=== PATIENT | male | born 1955 | race Caucasian/White ===

== ENCOUNTER 2016-08-11 12:37 | Inpatient (IN) | payer SELFPAY ==
[~2016-08-11] VITALS: Ht 175.3 cm; Wt 80.6 kg
[2016-08-11] VITALS (9 sets, daily range): BP systolic 105–142; BP diastolic 52–89; PULSE 53–77; RESP 17–22; TEMP 97–98.6; O2SAT 97–100
[~2016-08-11 12:37] MED LIST: Z.0.NO CURRENT MEDS
[2016-08-11] MEDS ORDERED: SODIUM CHLOR 0.9% 1000 ML INJ 1,000 ML IV ONE (12:52)
--- NOTE | 2016-08-11 12:57 | PD ---
HPI Chief Complaint: Syncope/Near-Syncope Time Seen by Provider: 12:45 Travel History International Travel<30 days: No Contact w/Intl Traveler<30days: No Traveled to known affect area: No History of Present Illness HPI 61-year-old male here by private vehicle for evaluation of syncopal episodes. This morning the patient told his significant other that he was not feeling well. He had an episode where it seemed like he may have passed out. He was then driven to the hospital, and while en route began to complain of not feeling well and had a syncopal episode. Patient had another syncopal episode while in triage, during this time he had some generalized shaking which appeared to be seizure-like according to the triage nurse. Patient denies history of seizures. History of CAD with angioplasty. Apparently he was recently told that he has a bladder mass. He has been having hematuria. No fevers or chills. He is denying chest pain or dyspnea. No abdominal pain. PFSH Past Medical History Asthma: No Blood Disorders: Yes Heart Rhythm Problems: Yes Cancer: No Cardiovascular Problems: Yes Chest Pain: Yes COPD: No Endocrine: No Genitourinary: No Immune Disorder: No Musculoskeletal: No Neurologic: No Psychiatric: No Respiratory: Yes Myocardial Infarction: Yes Sleep Apnea: No Tetanus Vaccination: > 5 Years Past Surgical History Abdominal Surgery: No Cardiac Surgery: Yes (CARDIAC CATH-ANGIOPLASTY TO RCA) Ear Surgery: No Endocrine Surgery: No Eye Surgery: No Genitourinary Surgery: Yes (VASECTOMY) Gynecologic Surgery: No Oral Surgery: No Thoracic Surgery: No Other Surgery: Yes Social History Alcohol Use: Yes (2 BEERS PER DAY) Tobacco Use: No Substance Use: No Allergies-Medications (Allergen,Severity, Reaction): Coded Allergies: No Known Allergies (Verified , 08/11/16) Reported Meds & Prescriptions Reported Meds & Active Scripts Active Reported No Current Meds (Miscellaneous Medication) Misc Review of Systems Except as stated in HPI: all other systems reviewed are Neg Physical Exam Narrative GENERAL: Well-developed, well-nourished, awake, alert, diaphoretic SKIN: Warm and diaphoretic HEAD: Atraumatic. Normocephalic. EYES: Pupils equal and round. No scleral icterus. No injection or drainage. ENT: No nasal bleeding or discharge. Mucous membranes pink and moist. NECK: Trachea midline. No JVD. No nuchal rigidity. CARDIOVASCULAR: Regular rate and rhythm. No murmur appreciated. RESPIRATORY: No accessory muscle use. Clear to auscultation. Breath sounds equal bilaterally. GASTROINTESTINAL: Abdomen soft, non-tender, nondistended. Reducible umbilical hernia. MUSCULOSKELETAL: No obvious deformities. No clubbing. No cyanosis. No edema. NEUROLOGICAL: Awake and alert. No obvious cranial nerve deficits. Motor grossly within normal limits. Normal speech. No focal deficit. PSYCHIATRIC: Appropriate mood and affect; insight and judgment normal. Data Data Last Documented VS Vital Signs Date Time Temp Pulse Resp B/P Pulse Ox O2 Delivery O2 Flow Rate FiO2 08/11/16 15:02 64 20 141/75 98 08/11/16 12:45 98.6 Orders Complete Blood Count With Diff (08/11/16 12:52) Comprehensive Metabolic Panel (08/11/16 12:52) Magnesium (Mg) (08/11/16 12:52) Ckmb (Isoenzyme) Profile (08/11/16 12:52) Troponin I (08/11/16 12:52) Act Partial Throm Time (Ptt) (08/11/16 12:52) Prothrombin Time / Inr (Pt) (08/11/16 12:52) Chest, Single Ap (08/11/16 12:52) Ct Brain W/O Iv Contrast(Rout) (08/11/16 12:52) Ecg Monitoring (08/11/16 12:52) Iv Access Insert/Monitor (08/11/16 12:52) Oximetry (08/11/16 12:52) Sodium Chloride 0.9% Flush (Ns Flush) (08/11/16 13:00) Sodium Chlor 0.9% 1000 Ml Inj (Ns 1000 M (08/11/16 12:52) Bedside Glucose TOMY.AC&HS (08/11/16 12:52) Urinalysis - C+S If Indicated (08/11/16 13:12) D-Dimer (08/11/16 12:45) Cta Brain W Iv Contrast W 3d (08/11/16 ) Ct Pulmonary Angiogram (08/11/16 13:41) Ct Abd/Pel W Iv Contrast(Rout) (08/11/16 ) Cta Neck W Iv Contrast W 3d (08/11/16 ) Iohexol 350 Inj (Omnipaque 350 Inj) (08/11/16 14:36) Admit Order (Ed Use Only) (08/11/16 15:22) Labs Laboratory Tests Test 08/11/16 12:45 White Blood Count 12.1 TH/MM3 Red Blood Count 5.01 MIL/MM3 Hemoglobin 14.2 GM/DL Hematocrit 41.5 % Mean Corpuscular Volume 82.9 FL Mean Corpuscular Hemoglobin 28.2 PG Mean Corpuscular Hemoglobin 34.1 % Concent Red Cell Distribution Width 13.3 % Platelet Count 257 TH/MM3 Mean Platelet Volume 8.8 FL Neutrophils (%) (Auto) 69.3 % Lymphocytes (%) (Auto) 17.4 % Monocytes (%) (Auto) 8.2 % Eosinophils (%) (Auto) 4.5 % Basophils (%) (Auto) 0.6 % Neutrophils # (Auto) 8.4 TH/MM3 Lymphocytes # (Auto) 2.1 TH/MM3 Monocytes # (Auto) 1.0 TH/MM3 Eosinophils # (Auto) 0.5 TH/MM3 Basophils # (Auto) 0.1 TH/MM3 CBC Comment DIFF FINAL Differential Comment Prothrombin Time 11.4 SEC Prothromb Time International 1.0 RATIO Ratio Activated Partial 28.4 SEC Thromboplast Time D-Dimer Quantitative (PE/DVT) 0.97 MG/L FEU Sodium Level 137 MEQ/L Potassium Level 4.3 MEQ/L Chloride Level 100 MEQ/L Carbon Dioxide Level 24.8 MEQ/L Anion Gap 12 MEQ/L Blood Urea Nitrogen 11 MG/DL Creatinine 0.97 MG/DL Estimat Glomerular Filtration 79 ML/MIN Rate Random Glucose 108 MG/DL Calcium Level 8.8 MG/DL Magnesium Level 2.1 MG/DL Total Bilirubin 0.5 MG/DL Aspartate Amino Transf 17 U/L (AST/SGOT) Alanine Aminotransferase 20 U/L (ALT/SGPT) Alkaline Phosphatase 174 U/L Total Creatine Kinase 52 U/L Troponin I LESS THAN 0.02 NG/ML Total Protein 7.4 GM/DL Albumin 3.5 GM/DL [facility] Medical Decision Making Medical Screen Exam Complete: Yes Emergency Medical Condition: Yes Interpretation(s) EKG: Sinus, rate 51, leftward axis, LAFB, no acute ischemic abnormality. Differential Diagnosis Syncope, dysrhythmia, ACS, seizure, PE, metabolic abnormality, intracranial abnormality Narrative Course Vital signs show heart rate 55, blood pressure 135/79, pulse ox 98% on room air , oral temp of 98.6F. CBC is essentially unremarkable. CMP is essentially unremarkable. Cardiac enzymes are negative. D-dimer is 0.97. Chest x-ray: No acute disease. CT head: CONCLUSION: 1. Hyperdense lesion in the medial left temporal lobe measuring 9 x 9 mm could be aneurysm, focal bleed or hemorrhagic metastatic lesion. 2. There is a low-density in the high right frontal and high left parietal lobe could be edema from metastatic lesions versus less likely old infarcts. 3. Probable large arachnoid cyst posterior fossa. The patient and the patient's family were made aware of all findings. CTA brain ordered looking for possible aneurysm. I also ordered a CT of the chest and abdomen to look for possible metastatic disease. CTA neck: CONCLUSION: 1. Mild plaque in both internal carotid arteries but no hemodynamically significant stenosis bilaterally. 2. No aneurysm. CTA brain: CONCLUSION: 1. No evidence of stenosis or aneurysm. 2. The known enhancing mass in the medial left temporal lobe is again visualized. 3. Arachnoid cyst again noted in the posterior fossa. CT pulmonary angiogram: CONCLUSION: 1. No evidence of pulmonary embolism. 2. Multiple bilateral small noncalcified pulmonary nodules most consistent with metastatic disease given the other findings. 3. Mediastinal and bilateral hilar adenopathy. CT abdomen pelvis: CONCLUSION: 1. Soft tissue mass in the right side of the bladder most consistent with a primary bladder tumor. 2. Multiple osseous metastasis. 3. 2 low-attenuation lesions in the liver most characteristic of metastatic disease. 4. Bilateral adrenal masses consistent with metastatic disease. The patient and the patient's family were made aware of all findings. He is resting comfortably. He is awake and alert. He will be admitted for further treatment and evaluation of syncope, metastatic disease, bladder tumor. Case discussed with medical residents. The patient will be admitted to their service under Dr. Augustine. Diagnosis Primary Impression: Syncope Qualified Code: R55 - Syncope, unspecified syncope type Additional Impressions: Metastatic disease Bladder tumor Admitting Information Admitting Physician Requests: Admit Noe Perry MD Aug 11, 2016 12:57
[2016-08-11] MEDS ORDERED: SODIUM CHLORIDE 0.9% FLUSH 5 ML FLUSH IVF PRN (13:00)
[2016-08-11 13:11] LABS: AUTOMATED NEUTROPHIL # 8.4 TH/MM3 (1.8-7.7); BASOPHIL # 0.1 TH/MM3 (0-0.2); BASOPHIL % 0.6 % (0.0-2.0); EOSINOPHIL # 0.5 TH/MM3 (0-0.4); EOSINOPHIL % 4.5 % (0.0-4.0); HEMATOCRIT 41.5 % (39.0-51.0); HEMO FLAGS DIFF FINAL; LYMPH % 17.4 % (9.0-44.0); LYMPHOCYTE # 2.1 TH/MM3 (1.0-4.8); MEAN CELL VOLUME 82.9 FL (80.0-100.0); MEAN CORPUSCULAR HEMOGLOBIN 28.2 PG (27.0-34.0); MEAN CORPUSCULAR HGB CONC 34.1 % (32.0-36.0); MONO % 8.2 % (0.0-8.0); NEUT % 69.3 % (16.0-70.0); PLATELET COUNT 257 TH/MM3 (150-450); RED BLOOD COUNT 5.01 MIL/MM3 (4.50-5.90); RED CELL DISTRIBUTION WIDTH 13.3 % (11.6-17.2); WHITE BLOOD COUNT 12.1 TH/MM3 (4.0-11.0)
--- NOTE | 2016-08-11 13:11 | RADRPT ---
EXAM DATE/TIME: 08/11/2016 12:57 [facility] COMPARISON: No previous studies available for comparison. INDICATIONS : Syncope. MEDICAL HISTORY : None. SURGICAL HISTORY : Angioplasty. ENCOUNTER: Initial ACUITY: 1 day PAIN SCORE: 0/10 LOCATION: Bilateral chest FINDINGS: A single view of the chest demonstrates the lungs to be symmetrically aerated without evidence of mas s, infiltrate or effusion. The cardiomediastinal contours are unremarkable. Osseous structures are intact. CONCLUSION: No acute disease. Tyson Campbell MD on August 11, 2016 at 13:09 Board Certified Radiologist. This report was verified electronically.
[2016-08-11 13:22] LABS: ANION GAP 12 MEQ/L (5-15); AST (GOT) 17 U/L (15-37); BICARBONATE 24.8 MEQ/L (21.0-32.0); BLOOD UREA NITROGEN 11 MG/DL (7-18); CHLORIDE 100 MEQ/L (98-107); GLOMERULAR FILTRATION RATE 79 ML/MIN (>89); MAGNESIUM 2.1 MG/DL (1.5-2.5); POTASSIUM 4.3 MEQ/L (3.5-5.1); SODIUM (NA) 137 MEQ/L (136-145)
[2016-08-11 13:26] LABS: ALKALINE PHOSPHATASE 174 U/L (45-117); ALT (GPT) 20 U/L (12-78); TOTAL BILIRUBIN ADULT 0.5 MG/DL (0.2-1.0)
[2016-08-11 13:29] LABS: APTT (PATIENT) 28.4 SEC (24.3-30.1); PROTHROMBIN TIME - PATIENT 11.4 SEC (9.8-11.6)
[2016-08-11 13:36] LABS: CREATINE KINASE 52 U/L (39-308)
--- NOTE | 2016-08-11 13:39 | RADRPT ---
EXAM DATE/TIME: 08/11/2016 13:14 [facility] COMPARISON: No previous studies available for comparison. INDICATIONS : New onset of seizure and two syncopal episodes today. RADIATION DOSE: 56.35 CTDIvol (mGy) MEDICAL HISTORY : Cardiovascular disease. SURGICAL HISTORY : None. ENCOUNTER: Initial ACUITY: 1 day PAIN SCALE: 0/10 LOCATION: cranial TECHNIQUE: Multiple contiguous axial images were obtained of the head. Using automated exposure control and adj ustment of the mA and/or kV according to patient size, radiation dose was kept as low as reasonably a chievable to obtain optimal diagnostic quality images. FINDINGS: CEREBRUM: Rounded hyperdense lesion in the medial left temporal lobe could be aneurysm, bleed or hemorrhagic me tastatic lesion measuring 9 x 9 mm. Area of low density in the left parietal and right frontal lobe c ould be edema from metastatic lesions. The ventricles are normal for age. No evidence of midline ingrid ft, mass lesion, hemorrhage or acute infarction. No extra-axial fluid collections are seen. POSTERIOR FOSSA: Prominent CSF signal posterior fossa possibly arachnoid cyst The 4th ventricle is midline. The cereb ellopontine angle is unremarkable. EXTRACRANIAL: The visualized portion of the orbits is intact. SKULL: The calvaria is intact. No evidence of skull fracture. CONCLUSION: 1. Hyperdense lesion in the medial left temporal lobe measuring 9 x 9 mm could be aneurysm, focal ble ed or hemorrhagic metastatic lesion. 2. There is a low-density in the high right frontal and high left parietal lobe could be edema from m etastatic lesions versus less likely old infarcts. 3. Probable large arachnoid cyst posterior fossa. Tyson Campbell MD on August 11, 2016 at 13:31 Board Certified Radiologist. This report was verified electronically.
[2016-08-11] MEDS ORDERED: IOHEXOL 350 MG/ML 10 ML VIAL (for RAD DIAG) IV ONE (14:36)
--- NOTE | 2016-08-11 14:57 | RADRPT ---
EXAM DATE/TIME: 08/11/2016 14:16 [facility] COMPARISON: No previous studies available for comparison. INDICATIONS : Abnormal CT brain scan today. Syncopal episode and seizure today. IV CONTRAST: 70 cc Omnipaque 350 (iohexol) IV ; Cumulative dose for multiple exams. RADIATION DOSE: 15.46 CTDIvol (mGy) ; Combined studies MEDICAL HISTORY : Cardiovascular disease. SURGICAL HISTORY : None. ENCOUNTER: Initial ACUITY: 1 day PAIN SCALE: 0/10 LOCATION: neck Elevated flow velocities and ICA/CCA ratios have been found to correlate with increased degrees of vessel stenosis, calculated as percentage of diameter relative to a normal segment of distal ICA/CCA. TECHNIQUE: Volumetric scanning was performed using a multirow detector CT scanner. The data was post processed with a variety of visualization algorithms including full-volume maximum intensity projection, multip lanar sliding thin-slab reformation, curved-planar reformation, and surface-rendering techniques. Us ing automated exposure control and adjustment of the mA and/or kV according to patient size, radiatio n dose was kept as low as reasonably achievable to obtain optimal diagnostic quality images. FINDINGS: AORTIC ARCH: There is a three-vessel origin of the great vessels from the aorta. No evidence of ostial narrowing. RIGHT CAROTID: The common carotid artery is intact. Mild plaque in the origin of the right internal carotid artery w ithout significant stenosis. The external carotid artery is intact. LEFT CAROTID: The common carotid artery is intact. Mild plaque in the origin of the left internal carotid artery wi thout significant stenosis. The external carotid artery is intact. VERTEBRALS: The vertebral arteries have a symmetric diameter. No stenotic lesions are seen. CONCLUSION: 1. Mild plaque in both internal carotid arteries but no hemodynamically significant stenosis bilatera lly. 2. No aneurysm. Tyson Campbell MD on August 11, 2016 at 14:54 Board Certified Radiologist. This report was verified electronically.
--- NOTE | 2016-08-11 15:01 | RADRPT ---
EXAM DATE/TIME: 08/11/2016 14:29 This report includes an Addendum and supersedes previous reports for this exam. [facility] COMPARISON: No previous studies available for comparison. INDICATIONS : Evaluate for metastatic disease or pulmonary embolism. Abnormal CT brain with mass.. IV CONTRAST: 75 cc Omnipaque 350 (iohexol) IV ; Cumulative dose for multiple exams. RADIATION DOSE: 9.08 CTDIvol (mGy) MEDICAL HISTORY : Cardiovascular disease. SURGICAL HISTORY : None. ENCOUNTER: Initial ACUITY: 1 day PAIN SCALE: 0/10 LOCATION: chest TECHNIQUE: Volumetric scanning of the chest was performed using a pulmonary embolism protocol MIP images were re constructed. Using automated exposure control and adjustment of the mA and/or kV according to patien t size, radiation dose was kept as low as reasonably achievable to obtain optimal diagnostic quality images. FINDINGS: PULMONARY ARTERIES: No filling defects are seen in the pulmonary arteries through the segmental level. LUNGS: There is no consolidation or pneumothorax . There are multiple scattered small noncalcified pulmonary masses in both lungs. These measure from 2 mm up to approximately 7 mm. PLEURAE: There is no pleural thickening or pleural effusion. MEDIASTINUM: There is mild pretracheal adenopathy and subcarinal adenopathy. Bilateral hilar adenopathy is present right greater than left. MUSCULOSKELETAL: Within normal limits for patient age. MISCELLANEOUS: The visualized upper abdominal organs demonstrate no acute abnormality. CONCLUSION: 1. No evidence of pulmonary embolism. 2. Multiple bilateral small noncalcified pulmonary nodules most consistent with metastatic disease gi franco the other findings. 3. Mediastinal and bilateral hilar adenopathy. Regulo Norris MD on August 11, 2016 at 14:55 Board Certified Radiologist. This report was verified electronically. ADDENDUM: There are multiple small scattered sclerotic foci including both humeral heads, sternum, and 2 thorac ic vertebral bodies consistent with metastatic disease. Regulo Norris MD on August 11, 2016 at 15:10 Board Certified Radiologist. This report was verified electronically.
--- NOTE | 2016-08-11 15:07 | RADRPT ---
EXAM DATE/TIME: 08/11/2016 14:34 [facility] COMPARISON: No previous studies available for comparison. INDICATIONS : Metastatic disease. Brain mass.. IV CONTRAST: 75 cc Omnipaque 350 (iohexol) IV ORAL CONTRAST: No oral contrast ingested. RADIATION DOSE: 11.15 CTDIvol (mGy) MEDICAL HISTORY : Cardiovascular disease. SURGICAL HISTORY : None. ENCOUNTER: Initial ACUITY: 1 day PAIN SCALE: 0/10 LOCATION: abdomen/pelvis TECHNIQUE: Volumetric scanning of the abdomen and pelvis was performed. Using automated exposure control and ad justment of the mA and/or kV according to patient size, radiation dose was kept as low as reasonably achievable to obtain optimal diagnostic quality images. FINDINGS: LOWER LUNGS: The visualized lower lungs are clear. LIVER: Homogeneous density with 2 low attenuation masses in the upper right lobe measuring approximately 1.2 cm in diameter. The gallbladder is unremarkable. There is no dilation of the biliary tree. No calci fied gallstones. SPLEEN: Normal size without lesion. PANCREAS: Within normal limits. KIDNEYS: Normal in size and shape. There is no solid mass, stone or hydronephrosis. There is a simple appeari ng cyst in the right kidney. ADRENAL GLANDS: There are bilateral adrenal masses measuring approximately 4.2 x 3.7 cm on the right and 4.0 x 4 cm o n the left. VASCULAR: There is no aortic aneurysm. BOWEL/MESENTERY: The stomach, small bowel, and colon demonstrate no acute abnormality. There is no free intraperitone al air or fluid. ABDOMINAL WALL: Within normal limits. RETROPERITONEUM: There is no lymphadenopathy. BLADDER: There is an irregular 5.6 x 2.4 x 2.4 cm mass in the right side of the bladder consistent with a tumo r. REPRODUCTIVE: Within normal limits. INGUINAL: There is no lymphadenopathy or hernia. MUSCULOSKELETAL: There are multiple scattered sclerotic lesions including the left femoral head, the central sacrum, t he right ilium and the T10 vertebral body. There is a lytic lesion in the T11 vertebral body. CONCLUSION: 1. Soft tissue mass in the right side of the bladder most consistent with a primary bladder tumor. 2. Multiple osseous metastasis. 3. 2 low-attenuation lesions in the liver most characteristic of metastatic disease. 4. Bilateral adrenal masses consistent with metastatic disease. Regulo Norris MD on August 11, 2016 at 14:59 Board Certified Radiologist. This report was verified electronically.
--- NOTE | 2016-08-11 15:26 | RADRPT ---
EXAM DATE/TIME: 08/11/2016 14:16 [facility] COMPARISON: CT BRAIN W/O CONTRAST, August 11, 2016, 13:14. INDICATIONS : Abnormal CT brain scan today. Syncopal episode and seizure today. Brain metastasis. Patient has a david dder tumor with osseous, pulmonary, hepatic and adrenal metastasis. IV CONTRAST: 70 cc Omnipaque 350 (iohexol) IV ; Cumulative dose for multiple exams. RADIATION DOSE: 15.46 CTDIvol (mGy) ; Combined studies MEDICAL HISTORY : Cardiovascular disease. SURGICAL HISTORY : None. ENCOUNTER: Initial ACUITY: 1 day PAIN SCALE: 0/10 LOCATION: cranial TECHNIQUE: Volumetric scanning was performed using a multi-row detector CT scanner. The data was post processed with a variety of visualization algorithms including full volume maximum intensity projection, multi -planar sliding thin slab reformation, curved planar reformation, and surface rendering techniques. Using automated exposure control and adjustment of the mA and/or kV according to patient size, radiat ion dose was kept as low as reasonably achievable to obtain optimal diagnostic quality images. FINDINGS: There is excellent visualization of the major intracranial arteries out to the second-order branch ve ssels. There is no evidence for aneurysm, vessel truncation or stenosis, and no evidence for vascula r malformation. An arachnoid cyst is again noted on the posterior fossa. Known enhancing mass in the medial left temp oral lobe is again noted. CONCLUSION: 1. No evidence of stenosis or aneurysm. 2. The known enhancing mass in the medial left temporal lobe is again visualized. 3. Arachnoid cyst again noted in the posterior fossa. Regulo Norris MD on August 11, 2016 at 15:21 Board Certified Radiologist. This report was verified electronically.
--- NOTE | 2016-08-11 16:06 | HHI.HP ---
[facility] Service Family Medicine Primary Care Physician No Primary Care Physician Admission Diagnosis syncope, metastatic disease, bladder tumor Diagnoses: Chief Complaint: Syncope International Travel<30 Days: No Contact w/Intl Traveler<30days: No Known Affected Area: No History of Present Illness 61 y/o male with history of [place] presents with syncope. He states that a couple months ago, had blood in urine, went away. The hematuria returned and he went to urologist in [place] a week ago. Referred him to get a CT scan and hasn't been able to complete it yet. Today "blacked out " today 3 times. His son and were present. [place] fine, then nauseous and then passed out. Was sitting on chair, he slumped over. Didn't hit head. In ED, per daughter, states that the nurse here thought he had a seizure. No loss of bowel/bladder function. In the last week or so, just had pain in side, knot on right side. Had some knee and back pain. He states feels fine now. No urinary symptoms. No recent illness, no chest pain, SOB, constipation/diarrhea, leg pain. Good appetite, eating well. No unexplained weight loss. Did see chiropractor last week for back pain, who did adjustment, but no improvement of pain. (Theodore Warren MD R1) Review of Systems Constitutional: DENIES: Fever, Weight loss, Chills Eyes: DENIES: Eye pain, Vision loss Ears, nose, mouth, throat: DENIES: Hearing loss, Nasal discharge, Throat pain Respiratory: DENIES: Cough, Shortness of breath Cardiovascular: DENIES: Chest pain, Palpitations, Lower Extremity Edema Gastrointestinal: DENIES: Abdominal pain, Black stools, Bloody stools, Diarrhea , Nausea, Vomiting Genitourinary: DENIES: Urinary frequency, Urgency Musculoskeletal: COMPLAINS OF: Joint pain, Back pain Integumentary: DENIES: Abnormal pigmentation, Rash Neurologic: DENIES: Headache Psychiatric: DENIES: Anxiety, Depression (Theodore Warren MD R1) Past Family Social History Past Medical History RI-2009 Umbilical hernia Past Surgical History Angioplasty Reported Medications Reported Meds & Active Scripts Active Reported No Current Meds (Miscellaneous Medication) Misc (Theodore Warren MD R1) Allergies: Coded Allergies: No Known Allergies (Verified , 08/11/16) Active Ordered Medications Active Medications Iohexol (Omnipaque 350 Inj) 145 ml STK-MED ONCE IV Last administered on 14:36; Admin Dose 145 ML; Start 08/11/16 at 14:36; Stop 08/11/16 at 14:37; Status DC IV Flush 2 ml 2 ml UNSCH PRN IVF; Start 08/11/16 at 13:00 Sodium Chloride (NS 1000 ml Inj) 1,000 ml @ 125 mls/hr Q8H ONCE IV Last administered on 08/11/16 12:59; Admin Dose 125 MLS/HR; Start 08/11/16 at 12:52 ; Stop 08/11/16 at 20:51 Family History Father-heart disease Mother-healthy Sister-cervical cancer Social History Tobacco-smoked as teenager Alcohol-Drinks socially Illicit drug use-marijuana in the past (Theodore Warren MD R1) Physical Exam Vital Signs Vital Signs Date Time Temp Pulse Resp B/P Pulse Ox O2 Delivery O2 Flow Rate FiO2 08/11/16 15:02 64 20 141/75 98 08/11/16 12:57 99 08/11/16 12:53 135/79 08/11/16 12:45 98.6 55 22 98 08/11/16 12:39 97.7 62 17 142/83 97 Physical Exam GENERAL: This is a well-nourished, well-developed patient, in no apparent distress. SKIN: No rashes, ecchymoses or lesions. Cool and dry. HEAD: Atraumatic. Normocephalic. EYES: Pupils equal round and reactive. Extraocular motions intact. Cataracts present ENT: Throat without erythema, tonsillar hypertrophy or exudate. Uvula midline. Airway patent. Missing teeth NECK: Trachea midline. Hard 2x2cm lymph node present on right anterior cervical area, nontentder CARDIOVASCULAR: Regular rate and rhythm without murmurs, gallops, or rubs. RESPIRATORY: Clear to auscultation. Breath sounds equal bilaterally. No wheezes , rales, or rhonchi. Tender mass right lower border or ribs. GASTROINTESTINAL: Abdomen soft, minimally tender in right lower quadrant. No hepato-splenomegaly, or palpable masses. No guarding. Reducible umbilical hernia. MUSCULOSKELETAL: Extremities without clubbing, cyanosis, or edema. No joint tenderness, effusion, or edema noted. No calf tenderness. No spinal tenderness. NEUROLOGICAL: Awake and alert. Motor and sensory grossly within normal limits. Normal speech. Laboratory Laboratory Tests Test 08/11/16 12:45 White Blood Count 12.1 Red Blood Count 5.01 Hemoglobin 14.2 Hematocrit 41.5 Mean Corpuscular Volume 82.9 Mean Corpuscular Hemoglobin 28.2 Mean Corpuscular Hemoglobin 34.1 Concent Red Cell Distribution Width 13.3 Platelet Count 257 Mean Platelet Volume 8.8 Neutrophils (%) (Auto) 69.3 Lymphocytes (%) (Auto) 17.4 Monocytes (%) (Auto) 8.2 Eosinophils (%) (Auto) 4.5 Basophils (%) (Auto) 0.6 Neutrophils # (Auto) 8.4 Lymphocytes # (Auto) 2.1 Monocytes # (Auto) 1.0 Eosinophils # (Auto) 0.5 Basophils # (Auto) 0.1 CBC Comment DIFF FINAL Differential Comment Prothrombin Time 11.4 Prothromb Time International 1.0 Ratio Activated Partial 28.4 Thromboplast Time D-Dimer Quantitative (PE/DVT) 0.97 Sodium Level 137 Potassium Level 4.3 Chloride Level 100 Carbon Dioxide Level 24.8 Anion Gap 12 Blood Urea Nitrogen 11 Creatinine 0.97 Estimat Glomerular Filtration 79 Rate Random Glucose 108 Calcium Level 8.8 Magnesium Level 2.1 Total Bilirubin 0.5 Aspartate Amino Transf 17 (AST/SGOT) Alanine Aminotransferase 20 (ALT/SGPT) Alkaline Phosphatase 174 Total Creatine Kinase 52 Troponin I LESS THAN 0.02 Total Protein 7.4 Albumin 3.5 (Theodore Warren MD R1) Result Diagram: 08/11/16 1245 08/11/16 [address] Angiography 08/11/16 1341 Signed Impressions: Service Date/Time: Thursday, August 11, 2016 14:29 - CONCLUSION: 1. No evidence of pulmonary embolism. 2. Multiple bilateral small noncalcified pulmonary nodules most consistent with metastatic disease given the other findings. 3. Mediastinal and bilateral hilar adenopathy. Regulo Norris MD ADDENDUM: There are multiple small scattered sclerotic foci including both humeral heads, sternum, and 2 thoracic vertebral bodies consistent with metastatic disease. Regulo Norris MD Head CT 08/11/16 1252 Signed Impressions: Service Date/Time: Thursday, August 11, 2016 13:14 - CONCLUSION: 1. Hyperdense lesion in the medial left temporal lobe measuring 9 x 9 mm could be aneurysm, focal bleed or hemorrhagic metastatic lesion. 2. There is a low-density in the high right frontal and high left parietal lobe could be edema from metastatic lesions versus less likely old infarcts. 3. Probable large arachnoid cyst posterior fossa. Tyson Campbell MD Chest X-Ray 08/11/16 1252 Signed Impressions: Service Date/Time: Thursday, August 11, 2016 12:57 - CONCLUSION: No acute disease. Tyson Campbell MD Neck CTA 08/11/16 0000 Signed Impressions: Service Date/Time: Thursday, August 11, 2016 14:16 - CONCLUSION: 1. Mild plaque in both internal carotid arteries but no hemodynamically significant stenosis bilaterally. 2. No aneurysm. Tyson Campbell MD Head CTA 08/11/16 0000 Signed Impressions: Service Date/Time: Thursday, August 11, 2016 14:16 - CONCLUSION: 1. No evidence of stenosis or aneurysm. 2. The known enhancing mass in the medial left temporal lobe is again visualized. 3. Arachnoid cyst again noted in the posterior fossa. Regulo Norris MD Abdomen/Pelvis CT 08/11/16 0000 Signed Impressions: Service Date/Time: Thursday, August 11, 2016 14:34 - CONCLUSION: 1. Soft tissue mass in the right side of the bladder most consistent with a primary bladder tumor. 2. Multiple osseous metastasis. 3. 2 low-attenuation lesions in the liver most characteristic of metastatic disease. 4. Bilateral adrenal masses consistent with metastatic disease. Regulo Norris MD (Theodore Warren MD R1) Assessment and Plan Assessment and Plan 61 y/o male with history of [place] presents with syncope. Found to have bladder cancer and metastasis. Will admit for further workup and management. Code Status Full Discussed Condition With Dr. Augustine & Dr. Caballero (Theodore Warren MD R1) Attending Attestation Patient seen and examined. Case reviewed and discussed with the resident team. Agree with plan of care as discussed with me and documented in the resident note. (Josselyn Augustine MD) Problem List: (1) Bladder tumor Status: Acute Plan: History of hematuria, went to see a urologist in [place]. Referred for CT scan but had been unable to complete it outpatient. Presents today due to syncopal episodes. Abdomen/pelvis CT: Soft tissue mass in the right side of the bladder most consistent with a primary bladder tumor. Multiple osseous metastasis. Lesions in the liver character sick of metastatic disease. Bilateral adrenal masses consistent with metastatic disease CTA: No evidence of PE. Multiple bilateral small nodules consistent with metastatic disease. Head CT: Hyperdense lesion in the medial left temporal lobe could be metastatic lesion. Other other areas of edema from possible metastatic lesions. UA: Large occult blood, innumerable RBCs -Consult oncology, appreciate recs -Consult urology, appreciate recs -Pain control with Tylenol, [place], morphine -Oxygen when necessary -CBC, BMP in a.m. (2) Syncope Status: Acute Plan: Several syncopal episodes today. Patient can tell before these episodes come on. No seizure-like activity. No postictal state or loss of bowel/bladder function. Most likely due to brain metastasis. -Ativan 2 mg IV when necessary seizure activity -Will start Keppra 500 mg IV every 12 hours for prevention -Bedrest -Neurochecks every 4 hours (3) FEN Status: Acute Plan: Fluids: Pt tolerating liquids Electrolytes: wnl, monitor, replace PRN Nutrition: regular diet, NPO after midnight for possible intervention DVT ppx: SCDs, holding chemoprophylaxis for possible intervention tomorrow (Theodore Warren MD R1) Physician Certification 2 Midnight Certification Type: Admission for Inpatient Services Order for Inpatient Services The services are ordered in accordance with Medicare regulations or non- Medicare payer requirements, as applicable. In the case of services not specified as inpatient-only, they are appropriately provided as inpatient services in accordance with the 2-midnight benchmark. Estimated LOS (days): 3 days is the estimated time the patient will need to remain in the hospital, assuming treatment plan goals are met and no additional complications. Post-Hospital Plan: Home (Theodore Warren MD R1) Problem Qualifiers (1) Syncope: Qualified Code: R55 - Syncope, unspecified syncope type Theodore Warren MD R1 Aug 11, 2016 16:06 Josselyn Augustine MD Aug 12, 2016 08:06
[2016-08-11] MEDS ORDERED: ONDANSETRON HCL 4 MG/2 ML VIAL IVP PRN (16:30)
[2016-08-11] MEDS ORDERED: ACETAMINOPHEN/HYDROcodone 325 MG/7.5 MG TAB PO PRN (16:30)
[2016-08-11] MEDS ORDERED: NALOXONE HCL 0.4 MG/ML AMP IV PRN ×2 (16:30)
[2016-08-11] MEDS ORDERED: MORPHINE SULFATE 4 MG/ML INJ IV PRN (16:30)
[2016-08-11] MEDS ORDERED: ACETAMINOPHEN/HYDROcodone 325 MG/5 MG TAB PO PRN (16:30)
[2016-08-11] MEDS ORDERED: SODIUM CHLORIDE 0.9% FLUSH 5 ML FLUSH FLUSH PRN (16:30)
[2016-08-11] MEDS ORDERED: ENALAPRILAT 1.25 MG/ML VIAL IV PRN (16:30)
[2016-08-11 16:44] LABS: BACTERIA, URINE RARE /hpf; BLOOD, URINE LARGE (NEG); COMMENT (UR) CULT NOT INDICATED; CULTURE IF INDICATED CULT NOT INDICATED; GLUCOSE,URINE NEG (NEG); KETONE, URINE NEG (NEG); MUCUS URINE FEW /lpf (OCC); NITRITE,URINE NEG (NEG); PH, URINE 8.5 (5.0-8.5); URINE COLOR LIGHT-YELLOW (YELLW/STRAW)
--- NOTE | 2016-08-11 17:30 | HHI.FPPN ---
Subjective Remarks 61 yo male accompanied by his 3 children. He came to ED because he passed out X3 today, once at home, once in the car and once in ED. Family does not think he hit his head when he fell. Prior to these spells, he felt nauseated. Reports he had blood in his urine and made an appt. with urology as he thought he had kidney stones. Saw urologist on 08-07 and was told he may have bladder cancer and to get a CT which he has not been able to do yet. He has noticed over the past few weeks some back discomfort, knee pain, pain and tenderness right lateral lower rib border as well as a lump in his right neck. No decreased appetite, no weight loss, no fevers or chills, no SOB, no cough, no diarrhea or constipation. No previous similar problem. No visual or hearing or taste changes. No headache, neck pain or decreased sensation in his extremities. See H&P for this admission for additional past, family and social history. Quit smoking at age 19, social etoh. No illicits. Objective Vitals Vital Signs Date Time Temp Pulse Resp B/P Pulse Ox O2 Delivery O2 Flow Rate FiO2 08/11/16 17:00 97.0 53 18 134/85 100 08/11/16 16:34 80 20 139/80 98 08/11/16 15:02 64 20 141/75 98 08/11/16 12:57 99 08/11/16 12:53 135/79 08/11/16 12:45 98.6 55 22 98 08/11/16 12:39 97.7 62 17 142/83 97 I/O 08/10/16 08/10/16 08/10/16 08/11/16 08/11/16 08/11/16 07:00 15:00 23:00 07:00 15:00 23:00 Output Total 500 ml Balance -500 ml Output Urine Total 500 ml # Voids 1 Result Diagram: 08/11/16 1245 08/11/16 1245 Other Results Laboratory Tests Test 08/11/16 08/11/16 12:45 16:20 White Blood Count 12.1 TH/MM3 Monocytes (%) (Auto) 8.2 % Eosinophils (%) (Auto) 4.5 % Neutrophils # (Auto) 8.4 TH/MM3 Monocytes # (Auto) 1.0 TH/MM3 Eosinophils # (Auto) 0.5 TH/MM3 D-Dimer Quantitative (PE/DVT) 0.97 MG/L FEU Estimat Glomerular Filtration 79 ML/MIN Rate Random Glucose 108 MG/DL Alkaline Phosphatase 174 U/L Troponin I LESS THAN 0.02 NG/ML Urine Specific [place] GREATER THAN 1.050 Urine Occult Blood LARGE Urine WBC 8 /hpf Urine Bacteria RARE /hpf Urine Mucus FEW /lpf Imaging Last Impressions CT Angiography 08/11/16 1341 Signed Impressions: Service Date/Time: Thursday, August 11, 2016 14:29 - CONCLUSION: 1. No evidence of pulmonary embolism. 2. Multiple bilateral small noncalcified pulmonary nodules most consistent with metastatic disease given the other findings. 3. Mediastinal and bilateral hilar adenopathy. Regulo Norris MD ADDENDUM: There are multiple small scattered sclerotic foci including both humeral heads, sternum, and 2 thoracic vertebral bodies consistent with metastatic disease. Regulo Norris MD Head CT 08/11/16 1252 Signed Impressions: Service Date/Time: Thursday, August 11, 2016 13:14 - CONCLUSION: 1. Hyperdense lesion in the medial left temporal lobe measuring 9 x 9 mm could be aneurysm, focal bleed or hemorrhagic metastatic lesion. 2. There is a low-density in the high right frontal and high left parietal lobe could be edema from metastatic lesions versus less likely old infarcts. 3. Probable large arachnoid cyst posterior fossa. Tyson Campbell MD Chest X-Ray 08/11/16 1252 Signed Impressions: Service Date/Time: Thursday, August 11, 2016 12:57 - CONCLUSION: No acute disease. Tyson Campbell MD Neck CTA 08/11/16 0000 Signed Impressions: Service Date/Time: Thursday, August 11, 2016 14:16 - CONCLUSION: 1. Mild plaque in both internal carotid arteries but no hemodynamically significant stenosis bilaterally. 2. No aneurysm. Tyson Campbell MD Head CTA 08/11/16 0000 Signed Impressions: Service Date/Time: Thursday, August 11, 2016 14:16 - CONCLUSION: 1. No evidence of stenosis or aneurysm. 2. The known enhancing mass in the medial left temporal lobe is again visualized. 3. Arachnoid cyst again noted in the posterior fossa. Regulo Norris MD Abdomen/Pelvis CT 08/11/16 0000 Signed Impressions: Service Date/Time: Thursday, August 11, 2016 14:34 - CONCLUSION: 1. Soft tissue mass in the right side of the bladder most consistent with a primary bladder tumor. 2. Multiple osseous metastasis. 3. 2 low-attenuation lesions in the liver most characteristic of metastatic disease. 4. Bilateral adrenal masses consistent with metastatic disease. Regulo Norris MD Objective Remarks O. CONSTITUTIONAL/GEN: normally nourished, in NAD. EYES: conjunctiva normal, PERRLA, EOMI. ENT: Mouth and pharynx normal. Missing several teeth. NECK: thyroid midline, palpable 2 cm mass right neck, nontender. LUNGS: clear A-P, respiratory effort is normal. Tender mass lower border of right ribs laterally. CARDIOVASCULAR: RR without murmur or gallop. No significant edema. GI/ABD: soft without masses, without organomegaly. BS+. Small umbilical hernia, reducible : no CVA tenderness NEURO: No focal deficits. SKIN: color normal, no rashes noted. HEME/LYMPH: no bruising, petechia or significant adenopathy MUSC: back is normal in appearance except for an apparent lipoma. No spinous process tenderness to palpation. Extremities are normal in appearance. PSYCH/MENTAL STATUS: Alert and oriented x 3. A/P Assessment and Plan 61 y/o male with history of [place] presents with syncope. Found to have bladder cancer and extensive metastases. Will admit for further workup and management. Attending Attestation Patient seen and examined. Case reviewed and discussed with the resident team. Agree with plan of care as discussed with me and documented in the resident note. Problem List: (1) Bladder tumor Status: Acute (2) Syncope Status: Acute (3) FEN Status: Acute Problem Qualifiers (1) Syncope: Qualified Code: R55 - Syncope, unspecified syncope type Josselyn Augustine MD Aug 11, 2016 17:30
[2016-08-11] MEDS ORDERED: LORazepam 2 MG/ML VIAL IV PRN (18:30)
[2016-08-11] MEDS: levETIRAcetam INJ 500 MG in SODIUM CHLORIDE 0.9% INJ 100 ML IV SCH (20:36)
[2016-08-11] MEDS: SODIUM CHLORIDE 0.9% FLUSH 5 ML FLUSH FLUSH SCH (20:37)
[2016-08-11] MEDS ORDERED: DEXAMETHASONE SOD PHOS 4 MG/ML VIAL IV PUSH ONE (20:45)
[2016-08-11] MEDS: PANTOPRAZOLE SODIUM 40 MG VIAL IV PUSH SCH (23:34)
[2016-08-12] VITALS: BP 117/66; PULSE 58; RESP 20; TEMP 98.2; O2SAT 97
[2016-08-12 04:00] VITALS: BP 132/76; PULSE 58; RESP 20; TEMP 98.7; O2SAT 98
[2016-08-12 07:11] LABS: BICARBONATE 24.9 MEQ/L (21.0-32.0)
[2016-08-12 07:22] LABS: POTASSIUM 4.7 MEQ/L (3.5-5.1)
[2016-08-12 07:30] LABS: AUTOMATED NEUTROPHIL # 8.2 TH/MM3 (1.8-7.7); BASOPHIL % 0.5 % (0.0-2.0); EOSINOPHIL % 0.3 % (0.0-4.0); HEMATOCRIT 43.4 % (39.0-51.0); HEMO FLAGS DIFF FINAL; LYMPH % 12.3 % (9.0-44.0); LYMPHOCYTE # 1.2 TH/MM3 (1.0-4.8); MEAN CELL VOLUME 83.2 FL (80.0-100.0); MEAN CORPUSCULAR HEMOGLOBIN 28.8 PG (27.0-34.0); MEAN CORPUSCULAR HGB CONC 34.6 % (32.0-36.0); MONO % 4.3 % (0.0-8.0); NEUT % 82.6 % (16.0-70.0); PLATELET COUNT 277 TH/MM3 (150-450); RED BLOOD COUNT 5.22 MIL/MM3 (4.50-5.90); RED CELL DISTRIBUTION WIDTH 13.3 % (11.6-17.2)
[2016-08-12 08:00] VITALS: BP 133/84; PULSE 64; RESP 18; TEMP 97.4; O2SAT 98
[2016-08-12] MEDS: levETIRAcetam INJ 500 MG in SODIUM CHLORIDE 0.9% INJ 100 ML IV SCH ×2 (08:07→21:14)
[2016-08-12] MEDS: SODIUM CHLORIDE 0.9% FLUSH 5 ML FLUSH FLUSH SCH ×2 (08:10→21:14)
[2016-08-12 08:55] VITALS: O2SAT 98
[2016-08-12] MEDS: DEXAMETHASONE SOD PHOS 4 MG/ML VIAL IV PUSH SCH ×2 (09:00→14:00)
[2016-08-12] MEDS ORDERED: DEXAMETHASONE SOD PHOS 4 MG/ML VIAL IV PUSH SCH (09:00)
--- NOTE | 2016-08-12 09:19 | PD.CONS ---
HPI Service Urology Consult Requested By Reason for Consult Bladder tumor Primary Care Physician No Primary Care Physician Diagnosis: History of Present Illness 61 year-old gentleman with recent development of intermittent gross painless hematuria who was admitted via the emergency room yesterday after having a syncopal episode. Preliminary workup in the emergency room included a CT scan of the abdomen and pelvis consistent with a bladder tumor originating off the right wall. Other abnormalities included bilateral adrenal masses and liver lesions consistent with metastatic disease. Additional CT scanning of the head was consistent with a left temporal lobe lesion suspicious for metastatic disease as well. A CT angiogram demonstrated small noncalcified pulmonary nodules once again consistent with metastatic disease. A urology consult was placed primarily to address the abnormal findings involving urinary bladder and perhaps schedule the patient for biopsy of the mass. At the time of consultation the patient was resting quietly and in no acute distress. He denied having any problems voiding. He reports seeing a urologist in our city several weeks ago regarding the painless hematuria and was advised to have a CT scan. He denies ever having problems with his kidneys or prostate. Denies tobacco usage. Review of Systems Constitutional: DENIES: Fever, Weight loss Respiratory: DENIES: Shortness of breath Cardiovascular: DENIES: Chest pain Gastrointestinal: DENIES: Abdominal pain, Nausea, Vomiting Genitourinary: COMPLAINS OF: Hematuria, DENIES: Urinary incontinence Musculoskeletal: DENIES: Back pain (intermittent gross) Neurologic: DENIES: Headache Except as stated in HPI: all other systems reviewed are Neg Past Family Social History Past Medical History Coronary artery disease Past Surgical History Status post angioplasty Status post umbilical hernia repair Reported Medications None Allergies: Coded Allergies: No Known Allergies (Verified , 08/11/16) Active Ordered Medications Refer to EMR Family History Father with heart disease Social History Occasional alcohol use Denies tobacco or intravenous drug abuse Physical Exam Vital Signs Date Time Temp Pulse Resp B/P Pulse Ox O2 Delivery O2 Flow Rate FiO2 08/12/16 08:55 98 21 08/12/16 04:00 98.7 58 20 132/76 98 08/12/16 00:00 98.2 58 20 117/66 97 08/11/16 20:00 97.0 77 18 121/89 98 08/11/16 17:55 60 20 105/52 98 08/11/16 17:00 97.0 53 18 134/85 100 08/11/16 16:34 80 20 139/80 98 08/11/16 15:02 64 20 141/75 98 08/11/16 12:57 99 08/11/16 12:53 135/79 08/11/16 12:45 98.6 55 22 98 08/11/16 12:39 97.7 62 17 142/83 97 Physical Exam GENERAL: This is a well-nourished, well-developed patient, in no apparent distress. SKIN: No rashes, ecchymoses or lesions. Cool and dry. HEAD: Atraumatic. Normocephalic. No temporal or scalp tenderness. EYES: Pupils equal round and reactive. Extraocular motions intact. No scleral icterus. No injection or drainage. ENT: Nose without bleeding, purulent drainage or septal hematoma. Throat without erythema, tonsillar hypertrophy or exudate. Uvula midline. Airway patent. NECK: Trachea midline. No JVD or lymphadenopathy. Supple, nontender, no meningeal signs. GASTROINTESTINAL: Abdomen soft, non-tender, nondistended. No hepato-splenomegaly , or palpable masses. No guarding. GENITOURINARY: No CVA tenderness MUSCULOSKELETAL: Extremities without clubbing, cyanosis, or edema. No joint tenderness, effusion, or edema noted. No calf tenderness. Negative Homans sign bilaterally. NEUROLOGICAL: Awake and alert. Cranial nerves II through XII intact. Motor and sensory grossly within normal limits. Five out of 5 muscle strength in all muscle groups. Normal speech. Laboratory Tests Test 08/11/16 08/11/16 08/12/16 12:45 16:20 05:00 White Blood Count 12.1 10.0 Red Blood Count 5.01 5.22 Hemoglobin 14.2 15.0 Hematocrit 41.5 43.4 Mean Corpuscular Volume 82.9 83.2 Mean Corpuscular Hemoglobin 28.2 28.8 Mean Corpuscular Hemoglobin 34.1 34.6 Concent Red Cell Distribution Width 13.3 13.3 Platelet Count 257 277 Mean Platelet Volume 8.8 9.7 Neutrophils (%) (Auto) 69.3 82.6 Lymphocytes (%) (Auto) 17.4 12.3 Monocytes (%) (Auto) 8.2 4.3 Eosinophils (%) (Auto) 4.5 0.3 Basophils (%) (Auto) 0.6 0.5 Neutrophils # (Auto) 8.4 8.2 Lymphocytes # (Auto) 2.1 1.2 Monocytes # (Auto) 1.0 0.4 Eosinophils # (Auto) 0.5 0.0 Basophils # (Auto) 0.1 0.0 CBC Comment DIFF FINAL DIFF FINAL Differential Comment Prothrombin Time 11.4 Prothromb Time International 1.0 Ratio Activated Partial 28.4 Thromboplast Time D-Dimer Quantitative (PE/DVT) 0.97 Sodium Level 137 137 Potassium Level 4.3 4.7 Chloride Level 100 103 Carbon Dioxide Level 24.8 24.9 Anion Gap 12 9 Blood Urea Nitrogen 11 11 Creatinine 0.97 0.95 Estimat Glomerular Filtration 79 81 Rate Random Glucose 108 117 Calcium Level 8.8 9.3 Magnesium Level 2.1 Total Bilirubin 0.5 Aspartate Amino Transf 17 (AST/SGOT) Alanine Aminotransferase 20 (ALT/SGPT) Alkaline Phosphatase 174 Total Creatine Kinase 52 Troponin I LESS THAN 0.02 Total Protein 7.4 Albumin 3.5 Urine Color LIGHT-YELLOW Urine Turbidity CLEAR Urine pH 8.5 Urine Specific [place] GREATER THAN 1.050 Urine Protein TRACE Urine Glucose (UA) NEG Urine Ketones NEG Urine Occult Blood LARGE Urine Nitrite NEG Urine Bilirubin NEG Urine Urobilinogen LESS THAN 2.0 Urine Leukocyte Esterase NEG Urine RBC Urine WBC 8 Urine Bacteria RARE Urine Mucus FEW Microscopic Urinalysis Comment CULT NOT INDICATED Hematology Comments Result Diagram: 08/12/16 0500 08/12/16 [address] Angiography 08/11/16 1341 Signed Impressions: Service Date/Time: Thursday, August 11, 2016 14:29 - CONCLUSION: 1. No evidence of pulmonary embolism. 2. Multiple bilateral small noncalcified pulmonary nodules most consistent with metastatic disease given the other findings. 3. Mediastinal and bilateral hilar adenopathy. Regulo Norris MD ADDENDUM: There are multiple small scattered sclerotic foci including both humeral heads, sternum, and 2 thoracic vertebral bodies consistent with metastatic disease. Regulo Norris MD Head CT 08/11/16 1252 Signed Impressions: Service Date/Time: Thursday, August 11, 2016 13:14 - CONCLUSION: 1. Hyperdense lesion in the medial left temporal lobe measuring 9 x 9 mm could be aneurysm, focal bleed or hemorrhagic metastatic lesion. 2. There is a low-density in the high right frontal and high left parietal lobe could be edema from metastatic lesions versus less likely old infarcts. 3. Probable large arachnoid cyst posterior fossa. Tyson Campbell MD Chest X-Ray 08/11/16 1252 Signed Impressions: Service Date/Time: Thursday, August 11, 2016 12:57 - CONCLUSION: No acute disease. Tyson Campbell MD Neck CTA 08/11/16 0000 Signed Impressions: Service Date/Time: Thursday, August 11, 2016 14:16 - CONCLUSION: 1. Mild plaque in both internal carotid arteries but no hemodynamically significant stenosis bilaterally. 2. No aneurysm. Tyson Campbell MD Head CTA 08/11/16 0000 Signed Impressions: Service Date/Time: Thursday, August 11, 2016 14:16 - CONCLUSION: 1. No evidence of stenosis or aneurysm. 2. The known enhancing mass in the medial left temporal lobe is again visualized. 3. Arachnoid cyst again noted in the posterior fossa. Regulo Norris MD Abdomen/Pelvis CT 08/11/16 0000 Signed Impressions: Service Date/Time: Thursday, August 11, 2016 14:34 - CONCLUSION: 1. Soft tissue mass in the right side of the bladder most consistent with a primary bladder tumor. 2. Multiple osseous metastasis. 3. 2 low-attenuation lesions in the liver most characteristic of metastatic disease. 4. Bilateral adrenal masses consistent with metastatic disease. Regulo Norris MD Assessment and Plan Assessment and Plan Urologic impression: Probable metastatic bladder cancer Plan: #1 keep patient nothing by mouth #2 patient scheduled for cystoscopy and transurethral resection of bladder tumor today #3 agree with oncology evaluation Yury Almazan MD Aug 12, 2016 09:19
[2016-08-12] MEDS ORDERED: FAMOTIDINE 20 MG/2 ML VIAL ONE ×2 (10:51→11:44)
--- NOTE | 2016-08-12 11:24 | HHI.FPPN ---
Subjective Remarks Patient seen and examined this morning. No complaints/concerns this morning. No reported syncopal events overnight. No chest pain, SOB this morning. Reports feeling well. (Theodore Warren MD R1) Objective Vitals Vital Signs Date Time Temp Pulse Resp B/P Pulse Ox O2 Delivery O2 Flow Rate FiO2 08/12/16 08:55 98 21 08/12/16 04:00 98.7 58 20 132/76 98 08/12/16 00:00 98.2 58 20 117/66 97 08/11/16 20:00 97.0 77 18 121/89 98 08/11/16 17:55 60 20 105/52 98 08/11/16 17:00 97.0 53 18 134/85 100 08/11/16 16:34 80 20 139/80 98 08/11/16 15:02 64 20 141/75 98 08/11/16 12:57 99 08/11/16 12:53 135/79 08/11/16 12:45 98.6 55 22 98 08/11/16 12:39 97.7 62 17 142/83 97 I/O 08/11/16 08/11/16 08/11/16 08/12/16 08/12/16 08/12/16 07:00 15:00 23:00 07:00 15:00 23:00 Intake Total 480 ml 3 ml Output Total 500 ml Balance -20 ml 3 ml Intake Oral 480 ml 3 ml Output Urine Total 500 ml # Voids 4 # Bowel Movements 0 (Theodore Warren MD R1) Result Diagram: 08/12/16 0500 08/12/16 0500 Objective Remarks CONSTITUTIONAL/GEN: normally nourished, in NAD. NECK: thyroid midline, palpable 2x2cm lymphadenopathy in right lower neck and supraclavicular LUNGS: clear A-P, respiratory effort is normal. Tender mass lower border of right ribs laterally. CARDIOVASCULAR: RR without murmur or gallop. No significant edema. GI/ABD: soft without masses, without organomegaly. BS+. Small umbilical hernia, reducible SKIN: color normal, no rashes noted. HEME/LYMPH: no bruising, petechia or significant adenopathy PSYCH/MENTAL STATUS: Alert and oriented x 3. (Theodore Warren MD R1) A/P Assessment and Plan 61 y/o male with history of CO presents with syncope. Found to have bladder cancer and extensive metastases. Will admit for further workup and management. Discharge Planning Pending urology and oncology recommendations (Theodore Warren MD R1) Attending Attestation Patient seen and examined. Case reviewed and discussed with the resident team. Agree with plan of care as discussed with me and documented in the resident note. (Josselyn Augustine MD) Problem List: (1) Bladder tumor Status: Acute Plan: History of hematuria, went to see a urologist in [place]. Referred for CT scan but had been unable to complete it outpatient. Abdomen/pelvis CT: Soft tissue mass in the right side of the bladder most consistent with a primary bladder tumor. Multiple osseous metastasis. Lesions in the liver character sick of metastatic disease. Bilateral adrenal masses consistent with metastatic disease CTA: No evidence of PE. Multiple bilateral small nodules consistent with metastatic disease. Head CT: Hyperdense lesion in the medial left temporal lobe could be metastatic lesion. Other other areas of edema from possible metastatic lesions. UA: Large occult blood, innumerable RBCs -Consult urology, appreciate recs -Pt seen by Dr. Almazan -Scheduled for cystoscopy and transurethral resection of bladder tumor today -Consult oncology, appreciate recs -Pain control with Tylenol, [place], morphine -Oxygen when necessary (2) Syncope Status: Acute Plan: Presented with 4 syncopal episodes on day of admission. Patient can tell before these episodes come on. No seizure-like activity. No postictal state or loss of bowel/bladder function. Most likely due to brain metastasis. No syncopal episodes overnight. -Ativan 2 mg IV when necessary seizure activity -Decadron 4mg IV @ 0900 & 1400 -Keppra 500 mg IV every 12 hours for prevention -Bedrest -Neurochecks every 4 hours (3) FEN Status: Acute Plan: Fluids: Pt tolerating liquids Electrolytes: wnl, monitor, replace PRN Nutrition: NPO for intervention DVT ppx: SCDs (Theodore Warern MD R1) Problem Qualifiers (1) Syncope: Qualified Code: R55 - Syncope, unspecified syncope type Theodore Warren MD R1 Aug 12, 2016 11:24 Josselyn Augustine MD Aug 12, 2016 11:49
[2016-08-12] MEDS ORDERED: MIDAZOLAM HCL 2 MG/2 ML VIAL ONE (11:45)
[2016-08-12] MEDS ORDERED: LACTATED RINGER'S 1000 ML INJ 1,000 ML IV ONE (12:00)
[2016-08-12] MEDS ORDERED: NEOSTIGMINE 3 MG/3 ML SYR IV ONE (12:00)
[2016-08-12] MEDS ORDERED: ONDANSETRON HCL 4 MG/2 ML VIAL IV PUSH ONE (12:00)
[2016-08-12] MEDS ORDERED: PROPOFOL 200 MG/20 ML AMP IV ONE (12:00)
[2016-08-12] MEDS ORDERED: ePHEDrine/NS 25 MG/5 ML SYR IV ONE (12:00)
[2016-08-12] MEDS ORDERED: ceFAZolin INJ 1,000 MG VIAL IV ONE (12:15)
--- NOTE | 2016-08-12 14:24 | PD.ONC.PN ---
Subjective Subjective Remarks Afebrile overnight. Patient seen in PACU. He is tired but otherwise comfortable. Denies pain. Objective Data Date Time Temp Pulse Resp B/P Pulse Ox O2 Delivery O2 Flow Rate FiO2 08/12/16 08:55 98 21 08/12/16 04:00 98.7 58 20 132/76 98 08/12/16 00:00 98.2 58 20 117/66 97 08/11/16 20:00 97.0 77 18 121/89 98 08/11/16 17:55 60 20 105/52 98 08/11/16 17:00 97.0 53 18 134/85 100 08/11/16 16:34 80 20 139/80 98 08/11/16 15:02 64 20 141/75 98 Result Diagram: 08/12/16 0500 08/12/16 0500 Laboratory Results Laboratory Tests Test 08/11/16 08/12/16 16:20 05:00 Urine Color LIGHT-YELLOW Urine Turbidity CLEAR Urine pH 8.5 Urine Specific [place] GREATER THAN 1.050 Urine Protein TRACE mg/dL Urine Glucose (UA) NEG mg/dL Urine Ketones NEG mg/dL Urine Occult Blood LARGE Urine Nitrite NEG Urine Bilirubin NEG Urine Urobilinogen LESS THAN 2.0 MG/DL Urine Leukocyte Esterase NEG Urine RBC /hpf Urine WBC 8 /hpf Urine Bacteria RARE /hpf Urine Mucus FEW /lpf Microscopic Urinalysis Comment CULT NOT INDICATED White Blood Count 10.0 TH/MM3 Red Blood Count 5.22 MIL/MM3 Hemoglobin 15.0 GM/DL Hematocrit 43.4 % Mean Corpuscular Volume 83.2 FL Mean Corpuscular Hemoglobin 28.8 PG Mean Corpuscular Hemoglobin 34.6 % Concent Red Cell Distribution Width 13.3 % Platelet Count 277 TH/MM3 Mean Platelet Volume 9.7 FL Neutrophils (%) (Auto) 82.6 % Lymphocytes (%) (Auto) 12.3 % Monocytes (%) (Auto) 4.3 % Eosinophils (%) (Auto) 0.3 % Basophils (%) (Auto) 0.5 % Neutrophils # (Auto) 8.2 TH/MM3 Lymphocytes # (Auto) 1.2 TH/MM3 Monocytes # (Auto) 0.4 TH/MM3 Eosinophils # (Auto) 0.0 TH/MM3 Basophils # (Auto) 0.0 TH/MM3 CBC Comment DIFF FINAL Differential Comment Hematology Comments Sodium Level 137 MEQ/L Potassium Level 4.7 MEQ/L Chloride Level 103 MEQ/L Carbon Dioxide Level 24.9 MEQ/L Anion Gap 9 MEQ/L Blood Urea Nitrogen 11 MG/DL Creatinine 0.95 MG/DL Estimat Glomerular Filtration 81 ML/MIN Rate Random Glucose 117 MG/DL Calcium Level 9.3 MG/DL Administered Medications Medications (Trade) Dose Ordered Sig/Viv Route PRN Reason Start Time Stop Time Status Last Admin Dose Admin IV Flush 2 ml 2 ml BID FLUSH 08/11/16 21:00 08/12/16 08:10 Levetriacetam/ Sodium Chloride (Keppra Inj/NS Inj) 105 ml @ 420 mls/hr Q12HR IV 08/11/16 21:00 08/12/16 08:07 Pantoprazole Sodium (Protonix Inj) 40 mg Q24H IV PUSH 08/11/16 23:00 08/11/16 23:34 Objective Remarks GENERAL: Fatigued middle aged male, lying supine on hospital bed in nad. SKIN: Warm and dry. HEAD: Normocephalic. EYES: No injection or drainage. NECK: Supple, trachea midline. CARDIOVASCULAR: +S1/S2 RESPIRATORY: anterior cooper clear. GASTROINTESTINAL: Abdomen soft, non-tender, nondistended. EXTREMITIES: LE with SCD's in place, Assessment/Plan Problem List: (1) Metastatic disease Status: Acute Plan: 08/12/16: patient undergoing cystoscopy with transurethral resection of bladder tumor today. will await pathology and discuss plan of care more in the coming days. --CTA showed multiple small nodules consistent with metastatic disease --CT brain showed +left temporal lobe lesion --CT ab/pelvis: +bladder tumor, multiple osseous mets, +liver lesions, + bilateral adrenal masses. Assessment 61y/o male admitted with syncope. Oncology consulted for bladder mass, evidence of metastatic disease. Attending Statement no more syncopal episode. Cystoscopy findings noted. s/ TURBT. Path is pending. MRI brain = multiple mets and one hemorrhagic metastatic lesion. Large 7 cm arachnoid cyst. ? significance. Change decadron to 4mg IV q 6 and consult XRT. 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 He has stage IV. Prognosis is very poor. Consult CM for SSI. Recommend palliative chemo after cranial XRT. The exam, history, and the medical decision-making described in the above note were completed with the assistance of the mid-level provider. I reviewed and agree with the findings presented. I attest that I had a [id number] encounter with the patient on the same day, and personally performed and documented my assessment and findings in the medical record. Risa Keller Aug 12, 2016 14:24 Jose Martin Berry MD Aug 12, 2016 23:26
[2016-08-12] MEDS ORDERED: fentaNYL CITRATE 250 MCG/5 ML AMP ONE (14:34)
[2016-08-12] MEDS ORDERED: BELLADONNA ALKALOIDS/OPIUM 60 MG SUPP RECTAL PRN (15:00)
--- NOTE | 2016-08-12 15:02 | PD.OP ---
Operative Report Date of Surgery: Aug 12, 2016 Preoperative Diagnosis: (1) Bladder tumor Postoperative Diagnosis: (1) Bladder tumor Procedure: Cystoscopy and transurethral resection of bladder tumor Anesthesia: General Surgeon: Yury Almazan Fire Engine Pump Operator(s): None Operation and Findings: Indication for procedure: Case of a pleasant 61 year-old gentleman who was admitted with recent history gross hematuria and syncope. Workup included CT scanning consistent with diffuse metastatic disease most likely originating from the urinary bladder. Presents now for cystoscopy and transurethral resection of bladder tumor. Operative procedure in detail: Patient was brought to the operating room suite and placed supine on the OR table. He was then placed and general anesthesia. He was then repositioned in the dorsal lithotomy position and prepped and draped in normal sterile fashion. After appropriate timeout was undertaken proceeded with cystoscopic evaluation utilizing the rigid cystoscope with the 20 [place] sheath and the 30 lens. The urethra was patent without stricture formation. The prostatic urethra was nonobstructing. Upon entry into the urinary bladder was a large tumor originating from the right wall with significant devitalization and calcification consistent with a tumor of urothelial etiology. The cystoscope was exchanged for the resectoscope with the 24 [place]oc[place] cutting loop. Using bipolar current and normal saline irrigation I proceeded with transurethral resection of this large bladder tumor. The dissection extended down to the base of the tumor and it appeared that the tumor was eroding through the entire bladder wall. I debulked as much as possible. Once the tumor was resected the elic evacuator was utilized to cover the resected tissue. An 18 [place] 10 cc Jacobson catheter was then placed and connected to gravity drainage with clear return. Patient tolerated the procedure without complications and was transferred to the PACU in satisfactory condition. Yury Almazan MD Aug 12, 2016 15:02
--- NOTE | 2016-08-12 15:06 | EKG ---
Date Performed: 08/11/2016 Time Performed: 12:49:11 PTAGE: 61 years EKG: SINUS BRADYCARDIA PATTERN CONSISTENT WITH PULMONARY DISEASE LEFT ANTERIOR FASCICULAR BLOCK MODERATE VOLTAGE CRITERIA FOR LVH, CONSIDER NORMAL VARIANT ABNORMAL ECG NO PREVIOUS TRACING DOCTOR: David Bal Interpretating Date/Time 08/12/2016 15:04:14
[2016-08-12 16:30] VITALS: BP 137/86; PULSE 64; RESP 18; TEMP 96.4; O2SAT 97
[2016-08-12] MEDS ORDERED: GADODIAMIDE PF 287 MG/ML 5 ML VIAL (for RAD MRI) IV ONE (22:08)
[2016-08-12] MEDS: PANTOPRAZOLE SODIUM 40 MG VIAL IV PUSH SCH (22:35)
--- NOTE | 2016-08-12 22:54 | RADRPT ---
EXAM DATE/TIME: 08/12/2016 21:54 [facility] COMPARISON: CT BRAIN W/O CONTRAST, August 11, 2016, 13:14. INDICATIONS : Metastatic disease. Patient has a bladder tumor with osseous, pulmonary, hepatic and adrenal metastas is. CONTRAST: 16 cc Omniscan (gadodiamide) IV MEDICAL HISTORY : Carcinoma, bladder. Metastatic disease. Cardiovascular disease. Seizures. SURGICAL HISTORY : Angioplasty. Vasectomy. ENCOUNTER: Subsequent ACUITY: 2 day PAIN SCORE: 3/10 LOCATION: cranial TECHNIQUE: Multiplanar, multisequence MRI of the brain was performed both prior to and following the administrat ion of paramagnetic contrast. FINDINGS: CEREBRUM: The ventricles are normal for age. There are multiple ring-enhancing lesions throughout both cerebral hemispheres characteristic of diffuse brain metastatic disease. The ring-enhancing lesions are surro unded by vasogenic edema. The ring-enhancing lesions measure between 5 mm and 1.0 cm. Small focal hem orrhage is also noted in the medial left temporal lobe most likely resenting a metastatic deposit. Th ere is no mass effect or midline shift. WHITE MATTER: There is some vasogenic edema in the white matter tracks along the cervical vertex bilaterally charac teristic of metastatic disease. POSTERIOR FOSSA: There is a large arachnoid cyst in the posterior fossa mostly on the right side measuring 7.2 x 5.8 c m. Multiple small ring-enhancing lesions are seen in both cerebral hemispheres characteristic of diff use brain metastatic disease. The midbrain is within normal limits. DIFFUSION IMAGING: No focal areas of restricted diffusion are seen. No evidence of acute infarction. EXTRACRANIAL: The visualized portions of the orbits and paranasal sinuses are unremarkable. POST-CONTRAST: Multiple ring-enhancing lesions are seen throughout the cerebral and cerebellar hemispheres character istic of metastatic disease. CONCLUSION: 1. Diffuse brain metastatic disease. 2. Large right-sided arachnoid cyst in the posterior fossa measuring 5.8 x 7.2 cm. 3. Small focal hemorrhage in the medial left temporal lobe most likely represent a hemorrhagic metast atic deposit. Nilo Contreras MD on August 12, 2016 at 22:45 Board Certified Radiologist. This report was verified electronically.
[2016-08-12 23:00] VITALS: BP 109/66; PULSE 62; RESP 15; TEMP 96.4; O2SAT 96
[2016-08-12] MEDS ORDERED: DEXTROSE 50% IN WATER 50 ML VIAL(D50) IV PUSH PRN (23:45)
[2016-08-12] MEDS ORDERED: GLUCAGON 1 MG/ML VIAL OTHER PRN (23:45)
[2016-08-13] MEDS: INSULIN ASPART SUPPLEMENTAL SCALE SQ SCH ×5 (00:01→21:00)
[2016-08-13] MEDS: DEXAMETHASONE SOD PHOS 4 MG/ML VIAL IV PUSH SCH ×5 (00:01→22:39)
[2016-08-13 00:14] VITALS: O2SAT 96
[2016-08-13 04:30] VITALS: BP 122/73; PULSE 60; RESP 15; TEMP 96.6; O2SAT 99
[2016-08-13 06:54] LABS: AUTOMATED NEUTROPHIL # 15.5 TH/MM3 (1.8-7.7); BASOPHIL # 0.1 TH/MM3 (0-0.2); BASOPHIL % 0.3 % (0.0-2.0); EOSINOPHIL % 0.1 % (0.0-4.0); HEMATOCRIT 39.5 % (39.0-51.0); HEMO FLAGS DIFF FINAL; LYMPH % 6.6 % (9.0-44.0); LYMPHOCYTE # 1.1 TH/MM3 (1.0-4.8); MEAN CELL VOLUME 82.3 FL (80.0-100.0); MEAN CORPUSCULAR HEMOGLOBIN 28.4 PG (27.0-34.0); MEAN CORPUSCULAR HGB CONC 34.5 % (32.0-36.0); MONO % 4.3 % (0.0-8.0); NEUT % 88.7 % (16.0-70.0); PLATELET COUNT 248 TH/MM3 (150-450); RED CELL DISTRIBUTION WIDTH 13.1 % (11.6-17.2); WHITE BLOOD COUNT 17.4 TH/MM3 (4.0-11.0)
[2016-08-13] MEDS: levETIRAcetam INJ 500 MG in SODIUM CHLORIDE 0.9% INJ 100 ML IV SCH (07:48)
[2016-08-13] MEDS: SODIUM CHLORIDE 0.9% FLUSH 5 ML FLUSH FLUSH SCH ×2 (07:48→22:40)
[2016-08-13 08:00] VITALS: BP 126/72; PULSE 55; RESP 18; TEMP 96.7; O2SAT 98
--- NOTE | 2016-08-13 08:46 | MB ---
cc: JOSSELYN PETERSON M.D., ABDUL J. M.D. DATE OF CONSULTATION: 08/11/2016 REASON FOR CONSULTATION Consult requested by Dr. Josselyn Peterson for evaluation of metastatic bladder tumor. HISTORY OF PRESENT ILLNESS Royce is a 61-year-old male. He has a history of coronary artery disease status post angioplasty. He was in his usual status of health up until about two months ago he started noticing blood in the urine. He thought that his urine was discolored due to the new vitamins that he was taking. He did not have any primary medical doctor. The gross hematuria continued and he recently went to see a urologist in [place] where he lives. He could not remember the name of the urologist. The urologist told him that he probably has a bladder tumor. He was ordered to have CAT scan done. The patient was brought into the emergency room after he had a syncopal episode. The patient is now admitted to the hospital by the [facility] residents. I have been asked to see the patient for further evaluation. REVIEW OF SYSTEMS The patient denies any anorexia, nausea or vomiting. He denies any weight loss. He has been having hematuria for the last two months. He has been having syncopal episodes. The records showed that he had three syncopal episodes, one was at home, one was in the car, and the other was in the triage area in the emergency room. The rest of the review of systems is negative. PAST MEDICAL HISTORY Coronary artery disease. PAST SURGICAL HISTORY 1. Vasectomy. 2. Angioplasty. ALLERGIES None. MEDICATIONS Prior to coming to the hospital were none. FAMILY HISTORY Father from heart, he had prostate cancer. Mother from renal failure. The patient has four sisters. One of the sisters is a cervical cancer survivor. He does not have any brothers or any sons. He has two daughters. SOCIAL HISTORY The patient does not smoke cigarettes, occasionally drinks alcohol. He worked as a [employer]. PHYSICAL EXAMINATION GENERAL: A well-developed, well-nourished white male in no apparent distress. VITAL SIGNS: Temperature 97, heart rate 77, blood pressure 121/89. HEENT: PERRLA. EOMI. Anicteric. No oral lesions noted. NECK: Supple. There is no cervical, supraclavicular or axillary lymphadenopathy noted. LUNGS: Clear. No wheezing, rhonchi or rales. HEART: Regular rate and rhythm. ABDOMEN: Soft, nontender. No hepatosplenomegaly. EXTREMITIES: No pedal edema. NEUROLOGIC: Awake, alert, oriented x3. SKIN: No significant lesions are noted. ASSESSMENT 1. Bladder mass with extensive metastatic disease. This is most likely consistent with primary urinary bladder cancer until proven otherwise. 2. Syncopal episode. 3. Coronary artery disease status post angioplasty. PLAN I have reviewed his available records and I had an extensive discussion with the patient and multiple family members. We discussed that the CAT scan of the abdomen and pelvis showed a soft tissue mass in the right side of the bladder, most consistent with primary bladder tumor. He has multiple bone metastases. He has two lesions in the liver most characteristic of metastatic disease. He also has bilateral adrenal masses consistent with metastatic disease. He had a CT angiogram that showed multiple small scattered sclerotic foci including both humeral heads, sternum and two thoracic vertebral bodies consistent with metastatic disease. He has multiple bilateral small noncalcified pulmonary nodules most consistent with metastatic disease given the other findings. He also has mediastinal and bilateral hilar lymphadenopathy. There is no evidence of pulmonary embolism. He had a CT angiogram of the neck which showed mild plaque in both internal carotid arteries but no hemodynamically significant stenosis bilaterally. He also had a CTA of the head which showed no evidence of stenosis or aneurysm. He was found to have an enhancing mass in the medial left temporal lobe. He had a head CT which showed a hyperdense lesion in the medial left temporal lobe measuring 9 x 9 mm which could be aneurysm, focal bleed or hemorrhagic metastatic lesion. There is low density in the high right frontal and high left parietal lobes which could be edema from metastatic lesions versus less likely old infarct. This is clearly is extensive metastatic disease to the bone, liver, lungs and possible brain. Urology has been consulted. My recommendation is for cystoscopy and biopsy of the bladder mass. However, if the urologist decides not to do cystoscopy then I will ask interventional radiology to do the biopsy of the most accessible lesion for tissue diagnosis. Once we have the tissue diagnosis then will discussed with the patient regarding the treatment. The patient will have an MRI of the brain to evaluate for brain lesions. His prognosis is extremely poor. His cancer unfortunately is not curable but it is treatable with the palliative chemotherapy. If in the MRI of the brain confirms brain metastasis then will consult radiation oncology for cranial radiation therapy. The patient and his multiple family members have asked several questions and these were answered to their satisfaction. Further recommendations based on his hospital stay. Thank you for asking my opinion. Jose Berry MD /BT /11:40 PM /8:29 AM
--- NOTE | 2016-08-13 10:10 | HHI.FPPN ---
Subjective Remarks No acute events overnight. Vital signs unremarkable. This morning patient reports that he feels very well and had no recurrence of syncope. He reports that he feels well enough even go home today. Otherwise has no complaints and denies any pain. (Penny Caballero MD R2) Objective Vitals Vital Signs Date Time Temp Pulse Resp B/P Pulse Ox O2 Delivery O2 Flow Rate FiO2 08/13/16 04:30 96.6 60 15 122/73 99 08/13/16 00:14 96 Nasal Cannula 08/12/16 23:00 96.4 62 15 109/66 96 08/12/16 16:30 96.4 64 18 137/86 97 08/12/16 15:45 98.7 68 15 133/78 98 Room Air 08/12/16 15:30 68 15 131/82 98 Nasal Cannula 2 08/12/16 15:15 65 16 142/89 98 Nasal Cannula 2 08/12/16 15:00 61 16 133/86 98 Nasal Cannula 2 08/12/16 14:57 98.0 73 15 143/95 97 Nasal Cannula 2 I/O 08/12/16 08/12/16 08/12/16 08/13/16 08/13/16 08/13/16 07:00 15:00 23:00 07:00 15:00 23:00 Intake Total 3 ml 1200 ml 1060 ml 1200 ml Output Total 25 ml 1750 ml 1350 ml Balance 3 ml 1175 ml -690 ml -150 ml Intake Oral 3 ml 960 ml 1200 ml IV Total 100 ml Other 1200 ml Output Urine Total 0 ml 1750 ml 1350 ml Estimated Blood Loss 25 ml # Bowel Movements 0 (Penny Caballero MD R2) Result Diagram: 08/13/16 0520 08/12/16 0500 Objective Remarks GEN: Well-developed, well-nourished patient. No acute distress. Resting comfortably in bed. CV: Regular rate and rhythm without obvious murmurs LUNGS: Clear to auscultation bilaterally. Normal respiratory effort. No wheezes , rales, rhonchi. EXT: No edema. No calf tenderness. NEURO/PSYCH: Awake, alert. Appropriate insight and judgment. Normal speech ( Penny Caballero MD R2) A/P Assessment and Plan 61 y/o male with history of [place] presents with syncope. Found to have bladder cancer and extensive metastases. Discharge Planning Pending urology and oncology recommendations sdw Dr. Augustine [facility] Attending Attestation Patient seen and examined. Case reviewed and discussed with the resident team. Agree with plan of care as discussed with me and documented in the resident note. (Josselyn Augustine MD) Problem List: (1) Bladder tumor Status: Acute Plan: History of hematuria, went to see a urologist in [place]. Referred for CT scan but had been unable to complete it outpatient. Inpatient imaging consistent with primary bladder cancer with metastatic disease involving bone, brain and adrenals. -Leukocytosis likely due to steroids -Bladder biopsy pending Consult urology, appreciate recs * cystoscopy and transurethral resection of bladder tumor 08/12 Consult oncology, appreciate recs * Cancer is not curable but rather treatable with palliative chemotherapy and radiation * Consulted radiation * Decadron 4 mg IV q6 and radiation treatment * Chemotherapy to start after radiation * will discuss with oncology about need for keppra as patient is at high risk for seizure Imaging: * MRI brain: Diffuse brain metastatic disease. Large right sided arachnoid cyst in the posterior fossa. Small focal hemorrhage in the medial left temporal lobe most likely represent a hemorrhagic metastatic deposit. * CTA: No evidence of PE. Multiple bilateral small nodules consistent with metastatic disease. * Head CT: Hyperdense lesion in the medial left temporal lobe could be metastatic lesion. Other other areas of edema from possible metastatic lesions. * Neck CTA: Mild plaque bilaterally carotid arteries but otherwise unremarkable * Head CTA: Enhancing mass in the medial left temporal lobe. Arachnoid cyst in the posterior fossa. * Abdominal CT: Soft tissue mass in the right side of the bladder most consistent with a primary bladder tumor. Multiple osseous metastasis. Low attenuation lesions in the liver. Bilateral adrenal masses consistent with metastatic disease. (2) Syncope Status: Resolved Plan: Presented with 4 syncopal episodes on day of admission. Patient can tell before these episodes come on. No seizure-like activity. No postictal state or loss of bowel/bladder function. Most likely due to brain metastasis. No reoccurrence since day of admission -Keppra 500 mg PO q12 -Ativan 2 mg IV when necessary seizure activity -seizure precautions -OOB with assistance -Neur ochecks every 4 hours (3) Metastatic disease Status: Acute Plan: See detailed plan above (4) FEN Status: Acute Plan: Fluids: none Electrolytes: wnl, monitor, replace PRN Nutrition: Regular DVT ppx: SCDs GI PPX: protonix (Penny Caballero MD R2) Problem Qualifiers (1) Syncope: Qualified Code: R55 - Syncope, unspecified syncope type Penny Caballero MD R2 Aug 13, 2016 10:10 Josselyn Augustine MD Aug 13, 2016 15:41
[2016-08-13 12:00] VITALS: BP 132/85; PULSE 57; RESP 18; TEMP 96.8; O2SAT 99
--- NOTE | 2016-08-13 12:03 | PD.ONC.PN ---
Subjective Subjective Remarks Afebrile overnight. Patient resting comfortably with and son at bedside. He has no complaints. He denies pain. Objective Data Date Time Temp Pulse Resp B/P Pulse Ox O2 Delivery O2 Flow Rate FiO2 08/13/16 04:30 96.6 60 15 122/73 99 08/13/16 00:14 96 Nasal Cannula 08/12/16 23:00 96.4 62 15 109/66 96 08/12/16 16:30 96.4 64 18 137/86 97 08/12/16 15:45 98.7 68 15 133/78 98 Room Air 08/12/16 15:30 68 15 131/82 98 Nasal Cannula 2 08/12/16 15:15 65 16 142/89 98 Nasal Cannula 2 08/12/16 15:00 61 16 133/86 98 Nasal Cannula 2 08/12/16 14:57 98.0 73 15 143/95 97 Nasal Cannula 2 08/13/16 08/13/16 08/13/16 07:00 15:00 23:00 Intake Total 1200 ml Output Total 1350 ml Balance -150 ml Result Diagram: 08/13/16 0520 08/12/16 0500 Laboratory Results Laboratory Tests Test 08/13/16 05:20 White Blood Count 17.4 TH/MM3 Red Blood Count 4.80 MIL/MM3 Hemoglobin 13.6 GM/DL Hematocrit 39.5 % Mean Corpuscular Volume 82.3 FL Mean Corpuscular Hemoglobin 28.4 PG Mean Corpuscular Hemoglobin 34.5 % Concent Red Cell Distribution Width 13.1 % Platelet Count 248 TH/MM3 Mean Platelet Volume 9.6 FL Neutrophils (%) (Auto) 88.7 % Lymphocytes (%) (Auto) 6.6 % Monocytes (%) (Auto) 4.3 % Eosinophils (%) (Auto) 0.1 % Basophils (%) (Auto) 0.3 % Neutrophils # (Auto) 15.5 TH/MM3 Lymphocytes # (Auto) 1.1 TH/MM3 Monocytes # (Auto) 0.8 TH/MM3 Eosinophils # (Auto) 0.0 TH/MM3 Basophils # (Auto) 0.1 TH/MM3 CBC Comment DIFF FINAL Differential Comment Imaging Studies Last Impressions Brain MRI 08/12/16 0000 Signed Impressions: Service Date/Time: Friday, August 12, 2016 21:54 - CONCLUSION: 1. Diffuse brain metastatic disease. 2. Large right-sided arachnoid cyst in the posterior fossa measuring 5.8 x 7.2 cm. 3. Small focal hemorrhage in the medial left temporal lobe most likely represent a hemorrhagic metastatic deposit. Nilo Contreras MD CT Angiography 08/11/16 1341 Signed Impressions: Service Date/Time: Thursday, August 11, 2016 14:29 - CONCLUSION: 1. No evidence of pulmonary embolism. 2. Multiple bilateral small noncalcified pulmonary nodules most consistent with metastatic disease given the other findings. 3. Mediastinal and bilateral hilar adenopathy. Regulo Norris MD ADDENDUM: There are multiple small scattered sclerotic foci including both humeral heads, sternum, and 2 thoracic vertebral bodies consistent with metastatic disease. Regulo Norris MD Head CT 08/11/16 1252 Signed Impressions: Service Date/Time: Thursday, August 11, 2016 13:14 - CONCLUSION: 1. Hyperdense lesion in the medial left temporal lobe measuring 9 x 9 mm could be aneurysm, focal bleed or hemorrhagic metastatic lesion. 2. There is a low-density in the high right frontal and high left parietal lobe could be edema from metastatic lesions versus less likely old infarcts. 3. Probable large arachnoid cyst posterior fossa. Tyson Campbell MD Chest X-Ray 08/11/16 1252 Signed Impressions: Service Date/Time: Thursday, August 11, 2016 12:57 - CONCLUSION: No acute disease. Tyson Campbell MD Neck CTA 08/11/16 0000 Signed Impressions: Service Date/Time: Thursday, August 11, 2016 14:16 - CONCLUSION: 1. Mild plaque in both internal carotid arteries but no hemodynamically significant stenosis bilaterally. 2. No aneurysm. Tyson Campbell MD Head CTA 08/11/16 0000 Signed Impressions: Service Date/Time: Thursday, August 11, 2016 14:16 - CONCLUSION: 1. No evidence of stenosis or aneurysm. 2. The known enhancing mass in the medial left temporal lobe is again visualized. 3. Arachnoid cyst again noted in the posterior fossa. Regulo Norris MD Abdomen/Pelvis CT 08/11/16 0000 Signed Impressions: Service Date/Time: Thursday, August 11, 2016 14:34 - CONCLUSION: 1. Soft tissue mass in the right side of the bladder most consistent with a primary bladder tumor. 2. Multiple osseous metastasis. 3. 2 low-attenuation lesions in the liver most characteristic of metastatic disease. 4. Bilateral adrenal masses consistent with metastatic disease. Regulo Norris MD Administered Medications Medications (Trade) Dose Ordered Sig/Viv Route PRN Reason Start Time Stop Time Status Last Admin Dose Admin IV Flush (NS Flush) 2 ml BID FLUSH 08/11/16 21:00 08/13/16 07:48 Pantoprazole Sodium (Protonix Inj) 40 mg Q24H IV PUSH 08/11/16 23:00 08/12/16 22:35 Dexamethasone Sodium Phosphate (Decadron Inj) 4 mg Q6HR IV PUSH 08/13/16 00:00 08/13/16 11:39 Objective Remarks GENERAL: Middle aged male, sitting up in bed in [place]. SKIN: Warm and dry. HEAD: Normocephalic. EYES: No injection or drainage. NECK: Supple, trachea midline. CARDIOVASCULAR: Regular rate and rhythm RESPIRATORY: Breath sounds equal bilaterally. No accessory muscle use. GASTROINTESTINAL: Abdomen soft, non-tender, nondistended. EXTREMITIES: No cyanosis NEUROLOGICAL: No obvious focal deficit. Awake, alert, and oriented x3. Assessment/Plan Problem List: (1) Metastatic disease Status: Acute Plan: 08/13/16: discussed MRI brain findings and consulting radiation oncology. questions answered. d/w case management assisting patient with follow up as he is currently self pay. --CTA showed multiple small nodules consistent with metastatic disease --CT brain showed +left temporal lobe lesion --CT ab/pelvis: +bladder tumor, multiple osseous mets, +liver lesions, + bilateral adrenal masses. --MRI brain = multiple mets and one hemorrhagic metastatic lesion. --Change decadron to 4mg IV q 6 and consult XRT. 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 He has stage IV. Prognosis is very poor. --CM consulted for SSI. --Recommend palliative chemo after cranial XRT. Assessment 61y/o male admitted with syncope. Oncology consulted for bladder mass, evidence of metastatic disease. Attending Statement no c/o D/W resullt of MRI brain which shows mets. Pt evaluated by DR Hernadez (XRT) await path. d/w [facility] who [facility]. d/w CM. The exam, history, and the medical decision-making described in the above note were completed with the assistance of the mid-level provider. I reviewed and agree with the findings presented. I attest that I had a [id number] encounter with the patient on the same day, and personally performed and documented my assessment and findings in the medical record. Risa Keller Aug 13, 2016 12:03 Jose [place] Berry MD Aug 13, 2016 23:24
--- NOTE | 2016-08-13 15:58 | HHI.PR ---
Subjective Patient symptoms today Postop day #1 TURBT Denies complaints Reports Jacobson catheter has been draining clear yellow urine Objective Vital Signs Vital Signs Date Time Temp Pulse Resp B/P Pulse Ox O2 Delivery O2 Flow Rate FiO2 08/13/16 12:00 96.8 57 18 132/85 99 08/13/16 08:00 96.7 55 18 126/72 98 08/13/16 04:30 96.6 60 15 122/73 99 08/13/16 00:14 96 Nasal Cannula 08/12/16 23:00 96.4 62 15 109/66 96 08/12/16 16:30 96.4 64 18 137/86 97 Intake & Output 08/13/16 08/13/16 07:00 19:00 Intake Total 2160 ml Output Total 3050 ml Balance -890 ml Intake Oral 2160 ml Output Urine Total 3050 ml Result Diagram: 08/13/16 0520 08/12/16 0500 Objective Remarks Jacobson catheter in place draining clear yellow urine Bladder not distended Medications and IVs Current Medications Medications (Trade) Dose Ordered Sig/Viv Route Start Time Stop Time Status Last Admin (NS Flush) 2 ml UNSCH PRN FLUSH 08/11/16 16:30 (NS Flush) 2 ml BID FLUSH 08/11/16 21:00 08/13/16 07:48 (Tylenol) 650 mg Q4H PRN PO 08/11/16 16:30 (Zofran Inj) 4 mg Q6H PRN IVP 08/11/16 16:30 ([place] 5-325 Mg) 1 tab Q4H PRN PO 08/11/16 16:30 ([place] 7.5-325 Mg) 1 tab Q4H PRN PO 08/11/16 16:30 (Morphine Inj) 4 mg Q3H PRN IV 08/11/16 16:30 (Narcan Inj) 0.4 mg UNSCH PRN IV 08/11/16 16:30 (Vasotec Inj) 1.25 mg Q6H PRN IV 08/11/16 16:30 (Ativan Inj) 2 mg UNSCH PRN IV 08/11/16 18:30 08/13/16 18:29 (Protonix Inj) 40 mg Q24H IV PUSH 08/11/16 23:00 08/12/16 22:35 (B & O Supp) 60 mg Q6HR PRN RECTAL 08/12/16 15:00 (Decadron Inj) 4 mg Q6HR IV PUSH 08/13/16 00:00 08/13/16 11:39 (D50w (Vial) Inj) 25 ml UNSCH PRN IV PUSH 08/12/16 23:45 (Glucagon Inj) 1 mg UNSCH PRN OTHER 08/12/16 23:45 (Keppra) 500 mg Q12HR PO 08/13/16 21:00 Assessment and Plan Assessment and Plan Urologic impression: Probable metastatic bladder cancer Plan: #1 continue with Jacobson catheter to gravity drainage #2 check pathology when available #3 agree with oncology evaluation Yury Almazan MD Aug 13, 2016 15:58
[2016-08-13 16:00] VITALS: BP 131/81; PULSE 71; RESP 18; TEMP 97.5; O2SAT 98
[2016-08-13 20:00] VITALS: BP 137/85; PULSE 76; RESP 16; TEMP 98.4; O2SAT 98
[2016-08-13] MEDS: PANTOPRAZOLE SODIUM 40 MG VIAL IV PUSH SCH (22:40)
[2016-08-13] MEDS: levETIRAcetam 500 MG TAB PO SCH (22:40)
[2016-08-14] VITALS (7 sets, daily range): BP systolic 127–142; BP diastolic 75–87; PULSE 50–64; RESP 16–53; TEMP 96–97.3; O2SAT 94–98
[2016-08-14] MEDS: INSULIN ASPART SUPPLEMENTAL SCALE SQ SCH ×4 (05:37→21:00)
[2016-08-14] MEDS: DEXAMETHASONE SOD PHOS 4 MG/ML VIAL IV PUSH SCH ×4 (05:37→21:58)
--- NOTE | 2016-08-14 08:12 | HHI.FPPN ---
Subjective Remarks Pt seen and examined this morning. Reports feeling well, however didn't get much sleep. Otherwise, is feeling well. Was told that he will be starting radiation tomorrow. (Theodore Warren MD R1) Objective Vitals Vital Signs Date Time Temp Pulse Resp B/P Pulse Ox O2 Delivery O2 Flow Rate FiO2 08/14/16 04:00 96.7 50 16 142/86 97 08/14/16 02:35 97 Nasal Cannula 2.00 08/14/16 00:13 97.3 54 16 127/75 97 08/13/16 20:00 98.4 76 16 137/85 98 08/13/16 16:00 97.5 71 18 131/81 98 08/13/16 12:00 96.8 57 18 132/85 99 I/O 08/13/16 08/13/16 08/13/16 08/14/16 08/14/16 08/14/16 07:00 15:00 23:00 07:00 15:00 23:00 Intake Total 1200 ml 840 ml 400 ml 500 ml Output Total 1350 ml 1525 ml 500 ml 750 ml Balance -150 ml -685 ml -100 ml -250 ml Intake Oral 1200 ml 840 ml 400 ml 500 ml Output Urine Total 1350 ml 1525 ml 500 ml 750 ml # Bowel Movements 1 1 (Theodore Warren MD R1) Result Diagram: 08/13/16 0520 08/12/16 0500 Objective Remarks GEN: Well-developed, well-nourished patient. No acute distress. Resting comfortably in bed. CV: Regular rate and rhythm without obvious murmurs LUNGS: Clear to auscultation bilaterally. Normal respiratory effort. No wheezes , rales, rhonchi. EXT: No edema. No calf tenderness. NEURO/PSYCH: Awake, alert. Appropriate insight and judgment. Normal speech ( Theodore Warren MD R1) A/P Assessment and Plan 61 y/o male with history of [place] presents with syncope. Found to have bladder cancer and extensive metastases. Discharge Planning Pending urology and oncology recommendations dw Dr. Augustine (Theodore Warren MD R1) Attending Attestation Patient seen and examined. Case reviewed and discussed with the resident team. Agree with plan of care as discussed with me and documented in the resident note. (Josselyn Augustine MD) Problem List: (1) Bladder tumor Status: Acute Plan: History of hematuria, went to see a urologist in [place]. Referred for CT scan but had been unable to complete it outpatient. Inpatient imaging consistent with primary bladder cancer with metastatic disease involving bone, brain and adrenals. -Leukocytosis likely due to steroids -Bladder biopsy pending Consult urology, appreciate recs * S/p cystoscopy and transurethral resection of bladder tumor 08/12 Consult oncology, appreciate recs * Cancer is not curable but rather treatable with palliative chemotherapy and radiation * Radiation consulted * Decadron 4 mg IV q6 and radiation treatment * Chemotherapy to start after radiation * Continue Keppra 500mg q12H PO for seizure/syncope prevention Imaging: * MRI brain: Diffuse brain metastatic disease. Large right sided arachnoid cyst in the posterior fossa. Small focal hemorrhage in the medial left temporal lobe most likely represent a hemorrhagic metastatic deposit. * CTA: No evidence of PE. Multiple bilateral small nodules consistent with metastatic disease. * Head CT: Hyperdense lesion in the medial left temporal lobe could be metastatic lesion. Other other areas of edema from possible metastatic lesions. * Neck CTA: Mild plaque bilaterally carotid arteries but otherwise unremarkable * Head CTA: Enhancing mass in the medial left temporal lobe. Arachnoid cyst in the posterior fossa. * Abdominal CT: Soft tissue mass in the right side of the bladder most consistent with a primary bladder tumor. Multiple osseous metastasis. Low attenuation lesions in the liver. Bilateral adrenal masses consistent with metastatic disease. (2) Syncope Status: Resolved Plan: Presented with 4 syncopal episodes on day of admission. Patient can tell before these episodes come on. No seizure-like activity. No postictal state or loss of bowel/bladder function. Most likely due to brain metastasis. No reoccurrence since day of admission -Keppra 500 mg PO q12 -Ativan 2 mg IV when necessary seizure activity -seizure precautions -OOB with assistance -Neuro checks every 4 hours (3) Metastatic disease Status: Acute Plan: See detailed plan above (4) FEN Status: Acute Plan: Fluids: none Electrolytes: wnl, monitor, replace PRN Nutrition: Regular DVT ppx: SCDs GI PPX: protonix (Theodore Warren MD R1) Problem Qualifiers (1) Syncope: Qualified Code: R55 - Syncope, unspecified syncope type Theodore Warren MD R1 Aug 14, 2016 08:12 Josselyn Augustine MD Aug 14, 2016 15:15
[2016-08-14] MEDS: levETIRAcetam 500 MG TAB PO SCH ×2 (08:22→20:29)
[2016-08-14] MEDS: SODIUM CHLORIDE 0.9% FLUSH 5 ML FLUSH FLUSH SCH ×2 (08:23→21:58)
--- NOTE | 2016-08-14 11:50 | PD.ONC.PN ---
Subjective Subjective Remarks Afebrile overnight. patient resting. Denies pain. Visiting with friends. Objective Data Date Time Temp Pulse Resp B/P Pulse Ox O2 Delivery O2 Flow Rate FiO2 08/14/16 08:00 96.9 53 18 136/86 98 08/14/16 04:00 96.7 50 16 142/86 97 08/14/16 02:35 97 Nasal Cannula 2.00 08/14/16 00:13 97.3 54 16 127/75 97 08/13/16 20:00 98.4 76 16 137/85 98 08/13/16 16:00 97.5 71 18 131/81 98 08/13/16 12:00 96.8 57 18 132/85 99 08/14/16 08/14/16 08/14/16 07:00 15:00 23:00 Intake Total 500 ml Output Total 1550 ml Balance -1050 ml Result Diagram: 08/13/16 0520 08/12/16 0500 Administered Medications Medications (Trade) Dose Ordered Sig/Viv Route PRN Reason Start Time Stop Time Status Last Admin Dose Admin IV Flush (NS Flush) 2 ml BID FLUSH 08/11/16 21:00 08/14/16 08:23 Pantoprazole Sodium (Protonix Inj) 40 mg Q24H IV PUSH 08/11/16 23:00 08/13/16 22:40 Dexamethasone Sodium Phosphate (Decadron Inj) 4 mg Q6HR IV PUSH 08/13/16 00:00 08/14/16 05:37 Levetriacetam (Keppra) 500 mg Q12HR PO 08/13/16 21:00 08/14/16 08:22 Objective Remarks GENERAL: Middle aged male, upright in bed, visiting with friends. SKIN: Warm and dry. HEAD: Normocephalic. EYES: No injection or drainage. NECK: Supple, trachea midline. CARDIOVASCULAR: Regular rate and rhythm RESPIRATORY: Breath sounds equal bilaterally. No accessory muscle use. GASTROINTESTINAL: Abdomen soft, non-tender, nondistended. EXTREMITIES: No cyanosis NEUROLOGICAL: awake and alert, normal speech. moving all extremities. Assessment/Plan Problem List: (1) Metastatic disease Status: Acute Plan: 08/14/16: going for XRT simulation this AM. await pathology --CTA showed multiple small nodules consistent with metastatic disease --CT brain showed +left temporal lobe lesion --CT ab/pelvis: +bladder tumor, multiple osseous mets, +liver lesions, + bilateral adrenal masses. --MRI brain = multiple mets and one hemorrhagic metastatic lesion. --Change decadron to 4mg IV q 6 and consult XRT. 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 He has stage IV. Prognosis is very poor. --Recommend palliative chemo after cranial XRT. Assessment 61y/o male admitted with syncope. Oncology consulted for bladder mass, evidence of metastatic disease. Attending Statement c/o insomnia. No More syncopy. d/w pt and daughter ( she [place] in [place]). Explain DX. Rx and PN. Recommend hospice vs chemo. He does not want hopsice. He understand chemo will have side effects but wants to do that. Chemo after cranial XRT. Bladder tumor path = TCC with muscle invasion. The exam, history, and the medical decision-making described in the above note were completed with the assistance of the mid-level provider. I reviewed and agree with the findings presented. I attest that I had a [id number] encounter with the patient on the same day, and personally performed and documented my assessment and findings in the medical record. Risa Keller Aug 14, 2016 11:50 Jose Martin Berry MD Aug 14, 2016 18:35
--- NOTE | 2016-08-14 16:40 | HHI.PR ---
Subjective Patient symptoms today Postop day #2 Denies complaints. Tolerating Jacobson well. Objective Vital Signs Vital Signs Date Time Temp Pulse Resp B/P Pulse Ox O2 Delivery O2 Flow Rate FiO2 08/14/16 13:43 98 21 08/14/16 12:00 96.8 64 18 128/82 98 08/14/16 08:00 96.9 53 18 136/86 98 08/14/16 04:00 96.7 50 16 142/86 97 08/14/16 02:35 97 Nasal Cannula 2.00 08/14/16 00:13 97.3 54 16 127/75 97 08/13/16 20:00 98.4 76 16 137/85 98 Intake & Output 08/14/16 08/14/16 07:00 19:00 Intake Total 900 ml Output Total 2050 ml Balance -1150 ml Intake Oral 900 ml Output Urine Total 2050 ml # Bowel Movements 1 Result Diagram: 08/13/16 0520 08/12/16 0500 Other Results Pathology report demonstrated high grade invasive urothelial cancer. Objective Remarks Jacobson catheter in place draining clear yellow urine Bladder not distended Medications and IVs Current Medications Medications (Trade) Dose Ordered Sig/Viv Route Start Time Stop Time Status Last Admin (NS Flush) 2 ml UNSCH PRN FLUSH 08/11/16 16:30 (NS Flush) 2 ml BID FLUSH 08/11/16 21:00 08/14/16 08:23 (Tylenol) 650 mg Q4H PRN PO 08/11/16 16:30 (Zofran Inj) 4 mg Q6H PRN IVP 08/11/16 16:30 (Westbrook 5-325 Mg) 1 tab Q4H PRN PO 08/11/16 16:30 (Westbrook 7.5-325 Mg) 1 tab Q4H PRN PO 08/11/16 16:30 (Morphine Inj) 4 mg Q3H PRN IV 08/11/16 16:30 (Narcan Inj) 0.4 mg UNSCH PRN IV 08/11/16 16:30 (Vasotec Inj) 1.25 mg Q6H PRN IV 08/11/16 16:30 (B & O Supp) 60 mg Q6HR PRN RECTAL 08/12/16 15:00 (Decadron Inj) 4 mg Q6HR IV PUSH 08/13/16 00:00 08/14/16 12:47 (D50w (Vial) Inj) 25 ml UNSCH PRN IV PUSH 08/12/16 23:45 (Glucagon Inj) 1 mg UNSCH PRN OTHER 08/12/16 23:45 (Keppra) 500 mg Q12HR PO 08/13/16 21:00 08/14/16 08:22 (Protonix) 40 mg Q24H PO 08/14/16 23:00 Assessment and Plan Assessment and Plan Urologic impression: 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 Plan: #1 further management as per oncology and radiation oncology #2 continue with Jacobson catheter to gravity drainage #3 Jacobson to be removed on Friday, if patient discharged home in the interim advised to follow up at my office Friday morning for catheter removal. Yury Almazan MD Aug 14, 2016 16:40
[2016-08-14] MEDS: PANTOPRAZOLE SOD 40 MG DELAYED RELEASE TAB PO SCH (21:58)
[2016-08-15] VITALS: BP 119/75; PULSE 51; RESP 18; TEMP 96.5; O2SAT 97
[2016-08-15 04:00] VITALS: BP 133/80; PULSE 51; RESP 18; TEMP 97; O2SAT 99
[2016-08-15] MEDS: DEXAMETHASONE SOD PHOS 4 MG/ML VIAL IV PUSH SCH ×4 (05:59→20:58)
[2016-08-15] MEDS: INSULIN ASPART SUPPLEMENTAL SCALE SQ SCH ×4 (05:59→21:00)
[2016-08-15 08:00] VITALS: BP 127/87; PULSE 53; RESP 20; TEMP 96.8; O2SAT 99
--- NOTE | 2016-08-15 08:29 | HHI.FPPN ---
Subjective Remarks No acute events overnight. VS unremarkable. This morning he reports that he continues to do well and should be going back for radiation treatment today. Denies any further episodes of syncope. (Penny Caballero MD R2) Objective Vitals Vital Signs Date Time Temp Pulse Resp B/P Pulse Ox O2 Delivery O2 Flow Rate FiO2 08/15/16 04:00 97.0 51 18 133/80 99 08/15/16 00:00 96.5 51 18 119/75 97 08/14/16 20:00 96.0 61 18 130/87 94 08/14/16 13:43 98 21 08/14/16 12:00 96.8 64 18 128/82 98 I/O 08/14/16 08/14/16 08/14/16 08/15/16 08/15/16 08/15/16 07:00 15:00 23:00 07:00 15:00 23:00 Intake Total 500 ml 720 ml 480 ml 600 ml Output Total 1550 ml 600 ml 450 ml 1650 ml Balance -1050 ml 120 ml 30 ml -1050 ml Intake Oral 500 ml 720 ml 480 ml 600 ml Output Urine Total 1550 ml 600 ml 450 ml 1650 ml (Penny Caballero MD R2) Result Diagram: 08/13/16 0520 08/12/16 0500 Objective Remarks GEN: Well-developed, well-nourished patient. No acute distress. Resting comfortably in bed. CV: Regular rate and rhythm without obvious murmurs LUNGS: Clear to auscultation bilaterally. Normal respiratory effort. No wheezes , rales, rhonchi. EXT: No edema. No calf tenderness. NEURO/PSYCH: Awake, alert. Appropriate insight and judgment. Able to sit up independently Normal speech (Penny Caballero MD R2) A/P Assessment and Plan 61 y/o male with history of RI presents with syncope. Found to have bladder cancer and extensive metastases. Discharge Planning Pending oncology recommendations dw Dr. Augustine and Dr. Warren (Penny Caballero MD R2) Attending Attestation Patient seen and examined. Case reviewed and discussed with the resident team. Agree with plan of care as discussed with me and documented in the resident note. (Josselyn Auugstine MD) Problem List: (1) Bladder tumor Status: Acute Plan: History of hematuria, went to see a urologist in [place]. Referred for CT scan but had been unable to complete it outpatient. Inpatient imaging consistent with primary bladder cancer with metastatic disease involving bone, brain and adrenals. -Leukocytosis likely due to steroids -Bladder biopsy: invasive high grade urothelial carcinoma with extension into the detrusor muscle Consult urology, appreciate recs * S/p cystoscopy and transurethral resection of bladder tumor 08/12 Consult oncology, appreciate recs * Cancer is not curable but rather treatable with palliative chemotherapy and radiation * XRT with chemo after * Decadron 4 mg IV q6 and radiation treatment -Continue Keppra 500mg q12H PO for seizure/syncope prevention Imaging: * MRI brain: Diffuse brain metastatic disease. Large right sided arachnoid cyst in the posterior fossa. Small focal hemorrhage in the medial left temporal lobe most likely represent a hemorrhagic metastatic deposit. * CTA: No evidence of PE. Multiple bilateral small nodules consistent with metastatic disease. * Head CT: Hyperdense lesion in the medial left temporal lobe could be metastatic lesion. Other other areas of edema from possible metastatic lesions. * Neck CTA: Mild plaque bilaterally carotid arteries but otherwise unremarkable * Head CTA: Enhancing mass in the medial left temporal lobe. Arachnoid cyst in the posterior fossa. * Abdominal CT: Soft tissue mass in the right side of the bladder most consistent with a primary bladder tumor. Multiple osseous metastasis. Low attenuation lesions in the liver. Bilateral adrenal masses consistent with metastatic disease. (2) Syncope Status: Resolved Plan: Presented with 4 syncopal episodes on day of admission. Patient can tell before these episodes come on. No seizure-like activity. No postictal state or loss of bowel/bladder function. Most likely due to brain metastasis. No reoccurrence since day of admission -Ativan 2 mg IV when necessary seizure activity -seizure precautions -OOB with assistance -Neuro checks every 4 hours (3) Metastatic disease Status: Acute Plan: See detailed plan above (4) FEN Status: Acute Plan: Fluids: none Electrolytes: wnl, monitor, replace PRN Nutrition: Regular DVT ppx: SCDs GI PPX: protonix (Penny Caballero MD R2) Problem Qualifiers (1) Syncope: Qualified Code: R55 - Syncope, unspecified syncope type Penny Caballero MD R2 Aug 15, 2016 08:29 Josselyn Augustine MD Aug 15, 2016 15:40
[2016-08-15] MEDS ORDERED: TEMAZEPAM 15 MG CAP PO PRN (09:30)
[2016-08-15] MEDS: levETIRAcetam 500 MG TAB PO SCH ×2 (09:37→20:58)
[2016-08-15] MEDS: SODIUM CHLORIDE 0.9% FLUSH 5 ML FLUSH FLUSH SCH ×2 (09:37→20:58)
[2016-08-15] MEDS: ACETAMINOPHEN 325 MG TAB PO PRN (11:46)
--- NOTE | 2016-08-15 12:05 | PD.ONC.PN ---
Subjective Subjective Remarks Afebrile overnight. Patient resting comfortably talking with daughter. He complains of some pain in his right leg. Objective Data Date Time Temp Pulse Resp B/P Pulse Ox O2 Delivery O2 Flow Rate FiO2 08/15/16 08:00 96.8 53 20 127/87 99 08/15/16 04:00 97.0 51 18 133/80 99 08/15/16 00:00 96.5 51 18 119/75 97 08/14/16 20:00 96.0 61 18 130/87 94 08/14/16 13:43 98 21 Result Diagram: 08/13/16 0520 08/12/16 0500 Administered Medications Medications (Trade) Dose Ordered Sig/Viv Route PRN Reason Start Time Stop Time Status Last Admin Dose Admin IV Flush (NS Flush) 2 ml BID FLUSH 08/11/16 21:00 08/15/16 09:37 Acetaminophen (Tylenol) 650 mg Q4H PRN PO TEMP > 100.4 or pain 1-2 08/11/16 16:30 08/15/16 11:46 Dexamethasone Sodium Phosphate (Decadron Inj) 4 mg Q6HR IV PUSH 08/13/16 00:00 08/15/16 11:46 Levetriacetam (Keppra) 500 mg Q12HR PO 08/13/16 21:00 08/15/16 09:37 Pantoprazole Sodium (Protonix) 40 mg Q24H PO 08/14/16 23:00 08/14/16 21:58 Objective Remarks GENERAL: Pleasant male, lying in bed in nad. Talking with daughter SKIN: Warm and dry. HEAD: Normocephalic. EYES: No injection or drainage. NECK: Supple, trachea midline. CARDIOVASCULAR: Regular rate and rhythm RESPIRATORY: Breath sounds equal bilaterally. No accessory muscle use. GASTROINTESTINAL: Abdomen soft, non-tender, nondistended. EXTREMITIES: No cyanosis NEUROLOGICAL: awake and alert, normal speech. moving all extremities. Assessment/Plan Problem List: (1) Metastatic disease Status: Acute Plan: 08/15/16: will start XRT today. has decided against chemotherapy 08/14/16: going for XRT simulation this AM. pathology shows urothelial carcinoma --CTA showed multiple small nodules consistent with metastatic disease --CT brain showed +left temporal lobe lesion --CT ab/pelvis: +bladder tumor, multiple osseous mets, +liver lesions, + bilateral adrenal masses. --MRI brain = multiple mets and one hemorrhagic metastatic lesion. --Change decadron to 4mg IV q 6 and consult XRT. 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 He has stage IV. Prognosis is very poor. --Recommend palliative chemo after cranial XRT. Assessment 61y/o male admitted with syncope. Oncology consulted for bladder mass, evidence of metastatic disease. Attending Statement no new c/o path is c/w TCC of UB for cranial XRT today. will follow. Risa Keller Aug 15, 2016 12:05 Jose Martin Berry MD Aug 15, 2016 23:16
--- NOTE | 2016-08-15 12:08 | RC ---
cc: EV BERRY M.D., ETHAN N. MD ALVAREZ-FARINETTI, ALVARO MD SCAGLIA,RAMAKRISHNA PETERSON,TOMER Johnson M.D. DATE OF SERVICE 08/13/2016 DATE OF [address] Jose Berry. 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 STAGE Stage IV. CHIEF COMPLAINT Seizures. Hematuria. REASON FOR VISIT The patient is being evaluated for palliative radiotherapy treatment options due to brain metastasis. HISTORY OF PRESENT ILLNESS This is a 61-year-old white male who, when asked, states about three months ago he noticed that he was having some urinary bleeding. He says that he was taking vitamin which was red in color and initially he thought it was due to that. He stopped taking the vitamin and the hematuria went away. He states that about two weeks ago the hematuria came back and he was not taking the vitamin. He denied any issues related to metastatic disease. The patient has had chronic back pain but he says this has not gotten any worse. He also denied any issues with mental process and motor functions or cognitive functions or memory prior to having the seizures. The patient states that all of a sudden he passed out. He says he had about four seizure episodes including one here in the ER. The patient says that he felt like he was going to have some nausea, vomiting and then passed out. He felt it when it was coming. He did not feel the seizures himself but he says the family members noticed them. As a result of this, he was brought to the ER where he was evaluated and imaging studies performed which detected a mass within the bladder as well as multiple of brain mets. The patient recently had an MRI of the brain which has confirmed the brain metastasis. The patient also had a cystoscopy with TURB performed by Dr. Almazan on 08/12/2016. I have now been requested to see the patient in consult for evaluation regarding possible palliative radiotherapy to the brain. PAST MEDICAL HISTORY 1. Above. 2. History of coronary artery disease. 3. Angioplasty. 4. Umbilical hernia repair. MEDICATIONS Per hospitalist's chart. ALLERGIES No known drug allergies. FAMILY HISTORY No history of carcinoma in the family. SOCIAL HISTORY EtOH intake socially. The patient denies any present smoking history but he used to be a smoker in the past. REVIEW OF SYSTEMS CONSTITUTIONAL: Upon review, the patient denies any major loss of weight in the last three months. ALLERGIES: The patient has not had any allergic reaction recently. ENT: The patient denies any difficulty or pain on swallowing. No mouth sores. EYES: The patient has any double vision. RESPIRATORY: The patient denies hemoptysis, shortness of breath. CARDIOVASCULAR: The patient denies any chest pain. No clinical signs of ND. No palpitations. INTEGUMENTARY: The patient denies any skin lesions. GASTROINTESTINAL: The patient denies any abdominal pain. No rectal bleeding. No major diarrhea. GENITOURINARY: The patient complains of hematuria. Denies any incontinence. MUSCULOSKELETAL: The patient complains about back pain, especially low back pain which has been chronic and has not gotten any worse. NEUROLOGICAL: The patient denies any clinical signs or symptoms of stroke. Denies any decrease in cognitive functions. No motor function deficits. The patient says that previous to the seizures he had some pain in the superior inner thighs bilaterally and a bit of tingling of his right foot, otherwise no other issues. DERMATOLOGICAL: The patient denies any itching or rashes. PSYCHIATRIC: The patient denies any suicidal thoughts and no depression. ENDOCRINE: Unremarkable. HEMATOLOGICAL: Unremarkable. PHYSICAL EXAMINATION GENERAL: The patient is oriented x 3, in no major acute distress or discomfort at the time of the evaluation. PAIN RATING SCALE: 0/10 as reported by the patient. VITAL SIGNS: Stable per hospitalist chart. BACK: To deep palpation and percussion of the posterior back, no pain was elicited. LUNGS: Bilateral lungs were clear to auscultation with appropriate ventilatory/respiratory effort which is equal and bilateral. HEART: Regular in rate and rhythm, free of murmurs. NECK: Palpation of the neck and bilateral supraclavicular areas are free. ABDOMEN: On palpation of the abdominal cavity, no hepatosplenomegaly was palpated. No periumbilical masses. There was umbilical hernia. Bilateral inguinal areas are free. EXTREMITIES: No lower extremity edema detected. NEUROLOGIC EXAMINATION: No neurological deficits detected. Cognitive functions preserved. No other positive findings. SURGICAL PATHOLOGY Pending. RADIOLOGY CT OF THE OF THE BRAIN, 08/11/2016. IMPRESSION: No evidence of stenosis or aneurysm. The non-enhancing mass in the medial left temporal lobe is again visualized. Arachnoid cyst again noted in the posterior fossa. CTA OF THE NECK, 08/11/2016. Reviewed. CT PULMONARY ANGIOGRAM, 08/11/2016. IMPRESSION: No evidence of pulmonary embolism. Multiple bilateral small noncalcified pulmonary nodules most consistent with metastatic disease. Mediastinal and bilateral hilar adenopathy. There are multiple small scattered sclerotic foci including both humeral heads, sternum and two thoracic vertebral bodies consistent with metastatic disease. CHEST X-RAY, 07/14/[address] OF THE BRAIN, 08/11/2016. IMPRESSION: Hyperdense lesion in the medial left temporal lobe measuring 9 x 9-mm. There is a low density in the high right frontal and a high left parietal lobe, could be edema of metastatic lesions versus likely old infarct. Probable large arachnoid cyst posterior fossa. CT OF THE ABDOMEN AND PELVIS, 08/11/2016. IMPRESSION: Soft tissue mass on the right side of the bladder more consistent with bladder tumor. Multiple areas of metastasis free. (2) Low attention lesions in the liver, most characteristic of metastatic disease. Bilateral renal masses consistent with metastatic disease. MRI OF THE BRAIN, 07/16/2016. Reviewed. ASSESSMENT 61-year-old white male with diagnosis of metastatic disease from a bladder primary. The patient being evaluated for possible palliative radiotherapy treatment options. PLAN I had an extensive discussion with the patient, his and his two daughters in regards to his present disease and condition. I advised the patient I have reviewed the MRI of the brain and it verifies that he has metastatic disease from a bladder primary, that I would recommend whole-brain radiation therapy. Following this we will assess response and determine if the patient would benefit from any radiosurgery. The patient was advised to the merits of the radiation therapy as well as side effects and complications to include but be limited to weakness and fatigue, decreased blood counts, erythema of the skin, necrosis of the skin, loss of hair in the scalp which would be permanent, decreased hearing, loss of hearing, decreased vision, loss of vision, decrease in cognitive functions, brain necrosis, memory problems, leukoencephalopathy of the brain. After a thorough discussion, the patient understood everything which was explained. He wanted to move forward with treatments. I will try to see if I can simulate the patient tomorrow and start on . He was advised if I could be of any further assistance, to please let me know. Dr. Berry thank you very much for placing this consult and allowing me to participate in the care of your patient. Should you have any further questions or concerns, please do not hesitate to contact me. Sharif Palacios MD Radiation Oncologist NATHALIE GLASS/ALFONSO /6:56 PM /11:28 AM ULISES
[2016-08-15 16:00] VITALS: BP 133/96; PULSE 67; RESP 21; TEMP 98.2; O2SAT 99
[2016-08-15 17:31] VITALS: O2SAT 99
[2016-08-15 20:00] VITALS: BP 138/81; PULSE 64; RESP 16; TEMP 97; O2SAT 97
[2016-08-15] MEDS: PANTOPRAZOLE SOD 40 MG DELAYED RELEASE TAB PO SCH (20:58)
[2016-08-16] MEDS: INSULIN ASPART SUPPLEMENTAL SCALE SQ SCH ×2 (05:38→13:06)
[2016-08-16] MEDS: DEXAMETHASONE SOD PHOS 4 MG/ML VIAL IV PUSH SCH ×2 (05:42→13:13)
[2016-08-16 06:14] VITALS: BP 141/90; PULSE 52; RESP 16; TEMP 96.5; O2SAT 100
[2016-08-16 07:07] LABS: AUTOMATED NEUTROPHIL # 18.6 TH/MM3 (1.8-7.7); EOSINOPHIL % 0.1 % (0.0-4.0); HEMATOCRIT 45.9 % (39.0-51.0); LYMPH % 7.9 % (9.0-44.0); LYMPHOCYTE # 1.7 TH/MM3 (1.0-4.8); MEAN CELL VOLUME 83.7 FL (80.0-100.0); MEAN CORPUSCULAR HEMOGLOBIN 27.9 PG (27.0-34.0); MEAN CORPUSCULAR HGB CONC 33.3 % (32.0-36.0); MONO % 6.5 % (0.0-8.0); NEUT % 85.5 % (16.0-70.0); PLATELET COUNT 262 TH/MM3 (150-450); RED BLOOD COUNT 5.49 MIL/MM3 (4.50-5.90); RED CELL DISTRIBUTION WIDTH 13.6 % (11.6-17.2); WHITE BLOOD COUNT 21.8 TH/MM3 (4.0-11.0)
[2016-08-16 07:12] LABS: HEMO FLAGS AUTO DIFF
[2016-08-16 08:00] VITALS: BP 146/90; PULSE 53; RESP 17; TEMP 96.9; O2SAT 100
[2016-08-16 08:34] LABS: BANDS 6 % (0-6); MYELOCYTES 2 % (0-0); NEUTROPHIL # MANUAL DIFF 18.3 TH/MM3 (1.8-7.7); POLYS (SEG NEUTROPHILS) 76 % (16-70); WBC DIFF SAMPLE 100
[2016-08-16 08:35] LABS: PLATELET ESTIMATE SMEAR NORMAL (NORMAL); PLATELET MORPHOLOGY NORMAL (NORMAL); SCAN/DIFF FINAL DIFF MANUAL
[2016-08-16 09:25] VITALS: O2SAT 99
[2016-08-16] MEDS: SODIUM CHLORIDE 0.9% FLUSH 5 ML FLUSH FLUSH SCH (09:34)
[2016-08-16] MEDS: levETIRAcetam 500 MG TAB PO SCH (09:34)
[2016-08-16] MEDS: ACETAMINOPHEN 325 MG TAB PO PRN (09:34)
[2016-08-16] MEDS ORDERED: PANT40TA3 PO (11:31)
[2016-08-16] MEDS ORDERED: REST15CA PO (11:31)
[2016-08-16] MEDS ORDERED: LEVE500 PO (11:31)
[2016-08-16] MEDS ORDERED: ACET325T PO (11:31)
[2016-08-16] MEDS ORDERED: DEXA4TAB PO (11:31)
--- NOTE | 2016-08-16 11:31 | HHI.DCPOC ---
Discharge Care Plan Diagnosis: (1) Bladder tumor (2) Metastatic disease (3) Syncope Goals to Promote Your Health * To prevent worsening of your condition and complications * To maintain your health at the optimal level Directions to Meet Your Goals Take your medications as prescribed Follow your dietary instruction Follow activity as directed Keep your appointments as scheduled Take your immunizations and boosters as scheduled If your symptoms worsen call your PCP, if no PCP go to Urgent Care Center or Emergency Room Smoking is Dangerous to Your Health. Avoid second hand smoke Call the 24-hour hour crisis hotline for domestic abuse at Theodore Warren MD R1 Aug 16, 2016 11:31
--- NOTE | 2016-08-16 14:08 | HHI.FPPN ---
Subjective Remarks Pt seen and examine this morning. Reports doing well. Slept well with medication. No complaints this morning. Ready to go home. Received radiation this morning and will receive it outpatient. (Theodore Warren MD R1) Objective Vitals Vital Signs Date Time Temp Pulse Resp B/P Pulse Ox O2 Delivery O2 Flow Rate FiO2 08/16/16 09:25 99 08/16/16 08:00 96.9 53 17 146/90 100 08/16/16 06:14 96.5 52 16 141/90 100 08/15/16 20:00 97.0 64 16 138/81 97 08/15/16 17:31 99 21 08/15/16 16:00 98.2 67 21 133/96 99 I/O 08/15/16 08/15/16 08/15/16 08/16/16 08/16/16 08/16/16 07:00 15:00 23:00 07:00 15:00 23:00 Intake Total 600 ml 960 ml 600 ml 300 ml Output Total 1650 ml 1100 ml 950 ml 1500 ml Balance -1050 ml -140 ml -350 ml -1200 ml Intake Oral 600 ml 960 ml 600 ml 300 ml Output Urine Total 1650 ml 1100 ml 950 ml 1500 ml # Bowel Movements 0 0 (Theodore Warren MD R1) Result Diagram: 08/16/16 0537 08/12/16 0500 Objective Remarks GEN: Well-developed, well-nourished patient. No acute distress. Sitting in chair CV: Regular rate and rhythm without obvious murmurs LUNGS: Clear to auscultation bilaterally. No wheezes, rales, rhonchi. NEURO/PSYCH: Awake, alert. Appropriate insight and judgment. Normal speech ( Theodore Warren MD R1) A/P Assessment and Plan 61 y/o male with history of DC presents with syncope. Found to have bladder cancer and extensive metastases. Discharge Planning Discharge today with outpatient radiation and f/u with urology. viji Augustine (Theodore Warren MD R1) Attending Attestation Patient seen and examined. Case reviewed and discussed with the resident team. Agree with plan of care as discussed with me and documented in the resident note. (Josselyn Augustine MD) Problem List: (1) Bladder tumor Status: Acute Plan: History of hematuria, went to see a urologist in [place]. Referred for CT scan but had been unable to complete it outpatient. Inpatient imaging consistent with primary bladder cancer with metastatic disease involving bone, brain and adrenals. -Leukocytosis likely due to steroids -Bladder biopsy: invasive high grade urothelial carcinoma with extension into the detrusor muscle Consult urology, appreciate recs * S/p cystoscopy and transurethral resection of bladder tumor 08/12 * F/u outpatient on Friday for Jacobson removal Consult oncology, appreciate recs * Cancer is not curable but rather treatable with palliative chemotherapy and radiation * XRT outpatient * Pt declines chemotherapy * Decadron 4 mg IV q6 and radiation treatment -Continue Keppra 500mg q12H PO for seizure/syncope prevention Imaging: * MRI brain: Diffuse brain metastatic disease. Large right sided arachnoid cyst in the posterior fossa. Small focal hemorrhage in the medial left temporal lobe most likely represent a hemorrhagic metastatic deposit. * CTA: No evidence of PE. Multiple bilateral small nodules consistent with metastatic disease. * Head CT: Hyperdense lesion in the medial left temporal lobe could be metastatic lesion. Other other areas of edema from possible metastatic lesions. * Neck CTA: Mild plaque bilaterally carotid arteries but otherwise unremarkable * Head CTA: Enhancing mass in the medial left temporal lobe. Arachnoid cyst in the posterior fossa. * Abdominal CT: Soft tissue mass in the right side of the bladder most consistent with a primary bladder tumor. Multiple osseous metastasis. Low attenuation lesions in the liver. Bilateral adrenal masses consistent with metastatic disease. (2) Syncope Status: Resolved Plan: Presented with 4 syncopal episodes on day of admission. Patient can tell before these episodes come on. No seizure-like activity. No postictal state or loss of bowel/bladder function. Most likely due to brain metastasis. No reoccurrence since day of admission -Ativan 2 mg IV when necessary seizure activity -seizure precautions -OOB with assistance -Neuro checks every 4 hours (3) Metastatic disease Status: Acute Plan: See detailed plan above (4) FEN Status: Acute Plan: Fluids: none Electrolytes: wnl, monitor, replace PRN Nutrition: Regular DVT ppx: SCDs GI PPX: protonix (Theodore Warren MD R1) Problem Qualifiers (1) Syncope: Qualified Code: R55 - Syncope, unspecified syncope type Theodore Warren MD R1 Aug 16, 2016 14:08 Josselyn Augustine MD Aug 16, 2016 16:05
--- NOTE | 2016-08-16 14:13 | HHI.DS ---
Discharge Summary Admission Date Aug 11, 2016 at 15:23 Discharge Date: Aug 16, 2016 Admitting Diagnosis syncope, metastatic disease, bladder tumor (1) Bladder tumor Diagnosis: Principal Plan: History of hematuria, went to see a urologist in [place]. Referred for CT scan but had been unable to complete it outpatient. Inpatient imaging consistent with primary bladder cancer with metastatic disease involving bone, brain and adrenals. -Leukocytosis likely due to steroids -Bladder biopsy: invasive high grade urothelial carcinoma with extension into the detrusor muscle Consult urology, appreciate recs * S/p cystoscopy and transurethral resection of bladder tumor 08/12 * F/u outpatient on Friday for Disla removal Consult oncology, appreciate recs * Cancer is not curable but rather treatable with palliative chemotherapy and radiation * XRT outpatient * Pt declines chemotherapy * Decadron 4 mg IV q6 and radiation treatment -Continue Keppra 500mg q12H PO for seizure/syncope prevention Imaging: * MRI brain: Diffuse brain metastatic disease. Large right sided arachnoid cyst in the posterior fossa. Small focal hemorrhage in the medial left temporal lobe most likely represent a hemorrhagic metastatic deposit. * CTA: No evidence of PE. Multiple bilateral small nodules consistent with metastatic disease. * Head CT: Hyperdense lesion in the medial left temporal lobe could be metastatic lesion. Other other areas of edema from possible metastatic lesions. * Neck CTA: Mild plaque bilaterally carotid arteries but otherwise unremarkable * Head CTA: Enhancing mass in the medial left temporal lobe. Arachnoid cyst in the posterior fossa. * Abdominal CT: Soft tissue mass in the right side of the bladder most consistent with a primary bladder tumor. Multiple osseous metastasis. Low attenuation lesions in the liver. Bilateral adrenal masses consistent with metastatic disease. (2) Syncope Diagnosis: Principal Plan: Presented with 4 syncopal episodes on day of admission. Patient can tell before these episodes come on. No seizure-like activity. No postictal state or loss of bowel/bladder function. Most likely due to brain metastasis. No reoccurrence since day of admission -Ativan 2 mg IV when necessary seizure activity -seizure precautions -OOB with assistance -Neuro checks every 4 hours (3) Metastatic disease Diagnosis: Principal Plan: See detailed plan above (4) FEN Diagnosis: Secondary Plan: Fluids: none Electrolytes: wnl, monitor, replace PRN Nutrition: Regular DVT ppx: SCDs GI PPX: protonix [facility] Oncology, Urology, Radiation oncology Procedures Cystoscopy and transurethral resection of bladder tumor Brief History 61 y/o male with history of CA presents with syncope. He states that a couple months ago, had blood in urine, went away. The hematuria returned and he went to urologist in [place] a week ago. Referred him to get a CT scan and hasn't been able to complete it yet. Today "blacked out " today 3 times. His son and were present. [place] fine, then nauseous and then passed out. Was sitting on chair, he slumped over. Didn't hit head. In ED, per daughter, states that the nurse here thought he had a seizure. No loss of bowel/bladder function. In the last week or so, just had pain in side, knot on right side. Had some knee and back pain. He states feels fine now. No urinary symptoms. No recent illness, no chest pain, SOB, constipation/diarrhea, leg pain. Good appetite, eating well. No unexplained weight loss. Did see chiropractor last week for back pain, who did adjustment, but no improvement of pain. CBC/BMP: 08/16/16 0537 08/12/16 0500 Significant Findings Laboratory Tests Test 08/16/16 05:37 White Blood Count 21.8 TH/MM3 (4.0-11.0) Neutrophils (%) (Auto) 85.5 % (16.0-70.0) Lymphocytes (%) (Auto) 7.9 % (9.0-44.0) Neutrophils # (Auto) 18.6 TH/MM3 (1.8-7.7) Monocytes # (Auto) 1.4 TH/MM3 (0-0.9) Neutrophils % (Manual) 76 % (16-70) Neutrophils # (Manual) 18.3 TH/MM3 (1.8-7.7) Myelocytes 2 % (0-0) Imaging Last Impressions Brain MRI 08/12/16 0000 Signed Impressions: Service Date/Time: Friday, August 12, 2016 21:54 - CONCLUSION: 1. Diffuse brain metastatic disease. 2. Large right-sided arachnoid cyst in the posterior fossa measuring 5.8 x 7.2 cm. 3. Small focal hemorrhage in the medial left temporal lobe most likely represent a hemorrhagic metastatic deposit. Nilo Contreras MD CT Angiography 08/11/16 1341 Signed Impressions: Service Date/Time: Thursday, August 11, 2016 14:29 - CONCLUSION: 1. No evidence of pulmonary embolism. 2. Multiple bilateral small noncalcified pulmonary nodules most consistent with metastatic disease given the other findings. 3. Mediastinal and bilateral hilar adenopathy. Regulo Norris MD ADDENDUM: There are multiple small scattered sclerotic foci including both humeral heads, sternum, and 2 thoracic vertebral bodies consistent with metastatic disease. Regulo Norris MD Head CT 08/11/16 1252 Signed Impressions: Service Date/Time: Thursday, August 11, 2016 13:14 - CONCLUSION: 1. Hyperdense lesion in the medial left temporal lobe measuring 9 x 9 mm could be aneurysm, focal bleed or hemorrhagic metastatic lesion. 2. There is a low-density in the high right frontal and high left parietal lobe could be edema from metastatic lesions versus less likely old infarcts. 3. Probable large arachnoid cyst posterior fossa. Tyson Campbell MD Chest X-Ray 08/11/16 1252 Signed Impressions: Service Date/Time: Thursday, August 11, 2016 12:57 - CONCLUSION: No acute disease. Tyson Campbell MD Neck CTA 08/11/16 0000 Signed Impressions: Service Date/Time: Thursday, August 11, 2016 14:16 - CONCLUSION: 1. Mild plaque in both internal carotid arteries but no hemodynamically significant stenosis bilaterally. 2. No aneurysm. Tyson Campbell MD Head CTA 08/11/16 0000 Signed Impressions: Service Date/Time: Thursday, August 11, 2016 14:16 - CONCLUSION: 1. No evidence of stenosis or aneurysm. 2. The known enhancing mass in the medial left temporal lobe is again visualized. 3. Arachnoid cyst again noted in the posterior fossa. Regulo Norris MD Abdomen/Pelvis CT 08/11/16 0000 Signed Impressions: Service Date/Time: Thursday, August 11, 2016 14:34 - CONCLUSION: 1. Soft tissue mass in the right side of the bladder most consistent with a primary bladder tumor. 2. Multiple osseous metastasis. 3. 2 low-attenuation lesions in the liver most characteristic of metastatic disease. 4. Bilateral adrenal masses consistent with metastatic disease. Regulo Norris MD PE at Discharge GEN: Well-developed, well-nourished patient. No acute distress. Sitting in chair CV: Regular rate and rhythm without obvious murmurs LUNGS: Clear to auscultation bilaterally. No wheezes, rales, rhonchi. NEURO/PSYCH: Awake, alert. Appropriate insight and judgment. Normal speech Hospital Course 61 y/o patient with history of hematuria presents with syncopal episodes. Imaging showed bladder tumor with extensive metastasis. Patient started on steroids and keppra for syncope prevention. Oncology and urology were consulted for management. Urology took patient for resection and pathology review. Pt tolerated procedure well with disla catheter in place. Oncology discussed case with patient and gave poor prognosis. Pt elected to undergo radiation therapy and decline chemotherapy. Pt underwent several episodes of radiation while in the hospital and will be scheduled outpatient. Pt discharged in stable condition with follow-up. Pt Condition on Discharge: Stable Discharge Disposition: Discharge Home Discharge Instructions DIET: Follow Instructions for: As Tolerated, No Restrictions Activities you can perform: Regular-No Restrictions Follow up Referrals: Oncology - 1 Week Urology - 08/19/16 with Yury Almazan MD New Medications: Dexamethasone (Dexamethasone) 4 Mg Tab 4 MG PO 6 AM & 2 PM #60 Ref 0 TAB Acetaminophen (Acetaminophen) 325 Mg Tab 650 MG PO Q4H PRN TEMP > 100.4 or pain 1-2 #30 TAB Levetiracetam (Keppra) 500 Mg Tab 500 MG PO Q12HR #60 TAB Pantoprazole (Pantoprazole) 40 Mg Tab 40 MG PO Q24H #30 TAB Temazepam (Restoril) 15 Mg Cap 15 MG PO HS PRN INSOMNIA #30 CAP Discontinued Medications: Miscellaneous (No Current Meds) Misc Ref 0 Theodore Warren MD R1 Aug 16, 2016 14:13
--- NOTE | 2016-08-16 14:39 | PD.ONC.PN ---
Subjective Subjective Remarks Afebrile overnight. Pt seen and examined this am around 10am. He states he slept great last night after taking a sleeping pill. He just got back from his 2nd XRT treatment this am. No complaints. He is looking forward to going home and "enjoy what time he has left." Objective Data Date Time Temp Pulse Resp B/P Pulse Ox O2 Delivery O2 Flow Rate FiO2 08/16/16 09:25 99 08/16/16 08:00 96.9 53 17 146/90 100 08/16/16 06:14 96.5 52 16 141/90 100 08/15/16 20:00 97.0 64 16 138/81 97 08/15/16 17:31 99 21 08/15/16 16:00 98.2 67 21 133/96 99 08/16/16 08/16/16 08/16/16 07:00 15:00 23:00 Intake Total 300 ml Output Total 1500 ml Balance -1200 ml Result Diagram: 08/16/16 0537 08/12/16 0500 Laboratory Results Laboratory Tests Test 08/16/16 05:37 White Blood Count 21.8 TH/MM3 Red Blood Count 5.49 MIL/MM3 Hemoglobin 15.3 GM/DL Hematocrit 45.9 % Mean Corpuscular Volume 83.7 FL Mean Corpuscular Hemoglobin 27.9 PG Mean Corpuscular Hemoglobin 33.3 % Concent Red Cell Distribution Width 13.6 % Platelet Count 262 TH/MM3 Mean Platelet Volume 9.1 FL Neutrophils (%) (Auto) 85.5 % Lymphocytes (%) (Auto) 7.9 % Monocytes (%) (Auto) 6.5 % Eosinophils (%) (Auto) 0.1 % Basophils (%) (Auto) 0.0 % Neutrophils # (Auto) 18.6 TH/MM3 Lymphocytes # (Auto) 1.7 TH/MM3 Monocytes # (Auto) 1.4 TH/MM3 Eosinophils # (Auto) 0.0 TH/MM3 Basophils # (Auto) 0.0 TH/MM3 CBC Comment AUTO DIFF Differential Total Cells 100 Counted Neutrophils % (Manual) 76 % Band Neutrophils % 6 % Lymphocytes % 12 % Monocytes % 4 % Neutrophils # (Manual) 18.3 TH/MM3 Myelocytes 2 % Differential Comment FINAL DIFF MANUAL Platelet Estimate NORMAL Platelet Morphology Comment NORMAL Red Cell Morphology Comment NORMAL Objective Remarks GENERAL: Older male, sitting in chair in room in no distress. SKIN: Warm and dry. HEAD: Normocephalic. EYES: No injection or drainage. NECK: Supple, trachea midline. CARDIOVASCULAR: +S1/S2. No murmur noted. RESPIRATORY: Lungs clear throughout. GASTROINTESTINAL: Abdomen soft, non-tender, nondistended. EXTREMITIES: No edema. NEUROLOGICAL: No obvious focal deficit. Awake, alert, and oriented x3. Assessment/Plan Problem List: (1) Metastatic disease Status: Acute Plan: 08/16/16: Pt rec'd his 2nd XRT today. Likely going home today. Will consult hospice as he has decided against chemotherapy. 08/15/16: will start XRT today. has decided against chemotherapy 08/14/16: going for XRT simulation this AM. pathology shows urothelial carcinoma --CTA showed multiple small nodules consistent with metastatic disease --CT brain showed +left temporal lobe lesion --CT ab/pelvis: +bladder tumor, multiple osseous mets, +liver lesions, + bilateral adrenal masses. --MRI brain = multiple mets and one hemorrhagic metastatic lesion. --Change decadron to 4mg IV q 6 and consult XRT. 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 He has stage IV. Prognosis is very poor. --Recommend palliative chemo after cranial XRT. Assessment 61y/o male admitted with syncope. Oncology consulted for bladder mass, evidence of metastatic disease. Attending Statement no new c/o wants to go home. cranial xrt decided against palliative chemo and has opted for hospice. ok to d/c The exam, history, and the medical decision-making described in the above note were completed with the assistance of the mid-level provider. I reviewed and agree with the findings presented. I attest that I had a [id number] encounter with the patient on the same day, and personally performed and documented my assessment and findings in the medical record. Cassie Ray Aug 16, 2016 14:39 Jose Martin Berry MD Aug 16, 2016 15:02
== END 2016-08-16 14:18 | disposition home or self-care (01) | DRG 988 ==
LOC: NEPA 12:37 → NEDA 15:23 → HOCB 16:56 → HOCA 19:55
PROVIDERS: ADMIT Family Medicine; ATTEND Family Medicine
PROC: 0TBB8ZZ Excision of Bladder, Via Natural or Artificial Opening Endoscopic (ICD-10-PCS; principal; 2016-08-12 11:47)
PROC: DW011ZZ Beam Radiation of Head and Neck using Photons 1 - 10 MeV (ICD-10-PCS; 2016-08-15)
DX: C79.31 Secondary malignant neoplasm of brain (principal); C78.00 Secondary malignant neoplasm of unspecified lung; C78.7 Secondary malignant neoplasm of liver and intrahepatic bile duct; C79.51 Secondary malignant neoplasm of bone; C67.9 Malignant neoplasm of bladder, unspecified; D72.829 Elevated white blood cell count, unspecified; C79.71 Secondary malignant neoplasm of right adrenal gland; C79.72 Secondary malignant neoplasm of left adrenal gland; R55 Syncope and collapse; K42.9 Umbilical hernia without obstruction or gangrene; R56.9 Unspecified convulsions; R59.0 Localized enlarged lymph nodes; I25.10 Atherosclerotic heart disease of native coronary artery without angina pectoris; I25.2 Old myocardial infarction; Z87.891 Personal history of nicotine dependence; Z98.61 Coronary angioplasty status; T38.0X5A Adverse effect of glucocorticoids and synthetic analogues, initial encounter
CPT/HCPCS: 70450; 70496; 70498; 70553; 71010; 71275; 74177; 77263; 77290; 77295; 77300; 77334; 77387; 77412; 80048; 80053; 81001; 82550; 82948; 83735; 84484; 85007; 85025; 85027; 85379; 85610; 85730; 88307; 88311; 93005; 99222; A9579; C9113; J0690; J1100; J1815; J1953; J2250; J2405; J2710; J3010; J7030; J7120; Q9967